=== PATIENT | male | born 1955 | race Caucasian/White ===

== ENCOUNTER → 2017-05-01 13:02 | Outpatient (CLI) | payer MEDICAID, SELFPAY ==
--- NOTE | 2017-05-01 13:04 | CA_ITS ---
PROCEDURE: 2-D M-mode and color Doppler study INDICATIONS FOR THE TEST: Chest pain COPD Heart Murmur Tobacco Smoking Palpitations+ Fatigue+ Syncope Edema+ Hypertension+Diabetes Mellitus Rheumatic Fever SOB+POE Obesity+Hyperlipidemia Family History HD Additional History PATIENT INFORMATION HEIGHT: 71 WEIGHT: 315 GENDER: Male B/P: 120/75 2-D/M-MODE INTERPRETATION: 2-D MEASUREMENTS OBSERVED VALUES IN CMS Right Ventricular Dimension (RVDd) 2.4 Interventricular Septum (Thickness)(IVsd) 1.2 Left Ventricular Internal Dimensions(LVIDd) 4.4 Left Ventricular Posterior Wall (Thickness)(LVPWd) 1.2 Aortic Root 3.1 Aortic Cusp Separation 2.0 Left Atrial Dimensions (LAD) 4.0 2D 1. Left atrium is mildly enlarged, left ventricle is normal size, there is mild concentric left ventricular hypertrophy, visually estimated ejection fraction 55% with no obvious regional wall motion abnormality. 2. The right atrium and right ventricle are normal size and contractility. 3. The aortic valve is minimally thickened and fibrosed. 4. The mitral and tricuspid valve leaflets are minimally thickened. 5. The pulmonic valve is poorly visualized. 6. No significant pericardial effusion noted. DOPPLER INTERROGATION: Doppler interrogation of the aortic, mitral and tricuspid valvular presence of mild mitral and tricuspid regurgitation, tricuspid regurgitant jet velocity is insufficient for calculation of the right ventricular systolic pressure, grade 1 diastolic dysfunction seen without tissue Doppler evidence of raised left atrial pressure. CONCLUSION: 1. Mildly enlarged left atrium, normal left ventricular size, mild concentric left ventricular hypertrophy, visually estimated ejection fraction 55% with no obvious regional wall motion abnormality, grade 1 diastolic dysfunction seen without tissue Doppler evidence of raised left atrial pressure. 2. Mild mitral and tricuspid regurgitation 3. No significant pericardial effusion noted.
== END ==
PROVIDERS: Family Provider Nurse Practitioner; PCP Nurse Practitioner; Visit Provider Nurse Practitioner
DX: R06.02 Shortness of breath (principal); I10 Essential (primary) hypertension; M79.89 Other specified soft tissue disorders
CPT/HCPCS: 93306

== ENCOUNTER → 2020-01-15 12:52 | Outpatient (CLI) | payer MEDICARE, SELFPAY ==
--- NOTE | 2020-01-15 | MR_ITS ---
PROCEDURE: MR HEAD/BRAIN WO CON CLINICAL INDICATION: H/A WITH MEMORY CHANGES HX SEIZURE DISORDER Pt has had a hx of memory issues with headaches. Pt has had a seizure disorder since he was a child. COMPARISON: CT HDWO CT HEAD W/O CONTRAST from 01/12/[address] HEAD W/O CONTRAST from 12/11/2016 TECHNIQUE: Routine multiplanar multi echo sequences are performed without gadolinium enhancement. FINDINGS: No midline shift, mass effect, intracranial hemorrhage, or hydrocephalus is evident. No evidence of acute infarction. Previous CT scan demonstrated gyriform calcification in the left parietal occipital region and parenchymal calcification in the left frontal lobe. These areas are less conspicuous on the MRI with some subtle decreased T2 signal in the left parietal occipital region. There is some mild generalized atrophy which is somewhat more prominent in the left frontal and left parietal occipital region. There is thickening of the calvarium in the left frontal and left occipital region. There is unilateral prominence of the left frontal sinus. The pituitary, corpus callosum, optic chiasm, and craniocervical junction have an unremarkable appearance. IMPRESSION: There is some focal areas of atrophy in the left frontal and left occipital lobe associated with some calvarial thickening at these areas with some minimal decrease in T2 signal in the left occipital area. These areas demonstrate gyriform enhancement on the previous CT scan. 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 Unfortunately, IV contrast was not utilized to evaluate for any enhancement. Does the patient have any stigmata from Sturge-Fang syndrome i.e. cutaneous hemangiomas of the face? Differential diagnosis would include AVMs with calcification and previous torch infection and healed cortical infarct.. Please correlate with clinical history. Dictated by: Moses Hunter MD 01/19/2020 10:19 Moses Hunter MD in [place] 01/19/2020 10:19
== END ==
PROVIDERS: PCP Nurse Practitioner Family; Visit Provider Nurse Practitioner Family
DX: R41.3 Other amnesia (principal); R56.9 Unspecified convulsions; R51.9 Headache, unspecified
CPT/HCPCS: 70551

== ENCOUNTER → 2020-02-18 12:46 | Outpatient (CLI) | payer MEDICARE, MEDICAID, SELFPAY ==
--- NOTE | 2020-02-18 12:48 | MR_ITS ---
PROCEDURE: MR ANGIO HEAD WO CON CLINICAL INDICATION: STURGE-PUGA SYNDROME, FREQUENT HEADACHES MEMORY LOSS, PREVOUS MRI SHOWED ABNORMALITY? COMPARISON: CT HDWO CT HEAD W/O CONTRAST from 12/11/2016 MR MR HEAD/BRAIN WO CON from 01/15/2020 TECHNIQUE: 3D [id number] images multi slab reformats without contrast FINDINGS: No aneurysm, AVM, or dissection or major branch occlusion. Small anterior choroidal infundibulum suspected the left. The left middle cerebral artery M1 and M2 segments and branches are smaller compared to the right side. Basilar artery and branches have an unremarkable appearance. IMPRESSION: 1. No aneurysm or AVM apparent. 2. Suspect a small infundibulum the left anterior choroidal artery origin. Follow-up may confirm stability. 3. The left middle cerebral artery and its branches are smaller compared to the right side. This is of uncertain significance or etiology. Lepto meningeal abnormalities may not be detected on this unenhanced. If Sturge-Puga syndrome is a consideration then would recommend CT angiogram of the head. Dictated by: Moses Hunter MD 02/21/2020 10:53 Moses Hunter MD in [place] 02/21/2020 10:53
== END ==
PROVIDERS: PCP Nurse Practitioner Family; Visit Provider Nurse Practitioner
DX: Q85.8 Other phakomatoses, not elsewhere classified (principal); R51.9 Headache, unspecified
CPT/HCPCS: 70544

== ENCOUNTER 2021-01-31 21:50 | Observation (INO) | payer MEDICARE, MEDICAID, SELFPAY ==
[2021-01-31 21:52] VITALS: BP 177/96; PULSE 99; RESP 18; TEMP 36.7; O2SAT 96; BMI 47.9
[2021-01-31 22:31] VITALS: BP 161/81; PULSE 91; O2SAT 97
[2021-01-31 22:45] LABS: Alanine Aminotransferase 27 U/L (12-78); Albumin Level 4.2 g/dl (3.5-5.0); Albumin/Globulin Ratio 1.3 (1.1-1.8); Alkaline Phosphatase 89 U/L (38-126); Anion Gap 6.9 mEq/L (5-15); Aspartate Amino Transferase 30 U/L (17-59); Blood Urea Nitrogen 22 mg/dl (9-20); Calcium 9.2 mg/dl (8.4-10.2); Carbon Dioxide 33 mmol/L (22.0-30.0); Chloride 106 mmol/L (98-107); Creatinine Clearance Estimated 69 mL/min (50-200); Estimated Glomerular Filt Rate 112 ml/min (>60); GFR (African American) 136 ML/MIN (>60); Globulin 3.2 g/dL (1.3-3.2); Glucose 101 mg/dl (74-100); Potassium 3.9 mmoL/L (3.5-5.1); Sodium 142 mmol/L (136-145); Total Protein,Serum 7.4 g/dl (6.3-8.2)
[2021-01-31 22:51] LABS: C-Reactive Protein 40.5 mg/L (0-4)
[2021-01-31 22:55] LABS: Bilirubin,Total 0.1 mg/dl (0.2-1.3)
[2021-01-31 23:03] LABS: Basophils # 0.1 K/mm3 (0-0.2); Basophils % 0.7 % (0.1-2.0); Eosinophils # 0.1 K/mm3 (0.0-0.4); Eosinophils % 1.8 % (0.1-12.0); Hemoglobin 13.8 g/dL (14.1-18.0); Lymphocytes # 1.9 K/mm3 (0.7-4.5); Lymphocytes % 25.4 % (10-50); Mean Corpuscular HGB Conc 32.1 g/dL (31.8-35.4); Mean Corpuscular Hemoglobin 30.3 pg (27.0-31.2); Mean Corpuscular Volume 94.2 fl (80-94); Mean Platelet Volume 8.4 fl (7.4-10.4); Monocytes # 0.5 K/mm3 (0.1-1.0); Monocytes % 6.9 % (1.7-9.3); Neutrophils # 4.9 K/mm3 (1.8-7.8); Neutrophils % 65.2 % (37.0-80.0); Platelet Count 293 K/mm3 (142-424); Red Blood Count 4.56 M/mm3 (4.60-6.20); Red Cell Distribution Width 15.1 % (11.5-17.5); White Blood Count 7.5 K/mm3 (4.8-10.8)
[2021-01-31 23:04] LABS: Procalcitonin 0.041 ng/mL (0.0-2.0)
[2021-01-31 23:26] LABS: Erythrocyte Sedimentation Rate 18 mm/hr (0-20)
[2021-01-31 23:57] VITALS: BP 153/82; PULSE 87; O2SAT 97
--- NOTE | 2021-02-01 00:40 | HMH.EDSKAF ---
ED Disposition Clinical Impression: Cellulitis Qualifiers: Site of cellulitis: extremity Site of cellulitis of extremity: lower extremity Laterality: left Qualified Code(s): L03.116 - Cellulitis of left lower limb Obese Qualifiers: Obesity type: due to excess calories Obesity classification: adult class 3 (BMI >= 40) Serious obesity comorbidity presence: with serious comorbidity Body mass index: BMI 45.0-49.9 Qualified Code(s): E66.01 - Morbid (severe) obesity due to excess calories; Z68.42 - Body mass index [BMI] 45.0-49.9, adult Disposition: Admitted as Observation Condition on Discharge: Serious Referrals: Vivienne Diamond APRN [Primary Care Provider] - - Critical Care Critical Care Time: No Attestation: On 01/31/21, the high probability of a clinically significant, sudden or life threatening deterioration of the following system(s) required my full and direct attention, intervention and personal management. The time I documented below is in addition to time spent performing reported procedures but includes the following listed in this critical care notation. Medical Decision Making - Medical Records Medical records reviewed: Yes: I reviewed the patient's medical records. - Lopez Inquiry Pt receiving controlled substance: No Vital Signs: 01/31/21 21:52 01/31/21 22:31 01/31/21 23:57 Temperature 98.0 F Temperature Source Oral Pulse Rate 91 H 87 Pulse Rate [Apical] 99 H Respiratory Rate 18 Blood Pressure 161/81 H 153/82 H Blood Pressure [Right Arm] 177/96 H Blood Pressure Mean [Right Arm] 123 Blood Pressure Source [Right Arm] Automatic Cuff Blood Pressure Position [Right Arm] Sitting 02 Sat by Pulse Oximetry 96 97 97 Oxygen Delivery Method Room Air Room Air Room Air - Lab Data Lab results reviewed: Yes: I reviewed the patient's lab results. Lab Results 01/31/21 22:29: WBC 7.5, RBC 4.56 L, Hgb 13.8 L, Hct 43.0, MCV 94.2 H, MCH 30.3, MCHC 32.1, RDW 15.1, Plt Count 293, MPV 8.4, Neut % (Auto) 65.2, Lymph % (Auto) 25.4, [place] % (Auto) 6.9, Eos % (Auto) 1.8, Baso % (Auto) 0.7, Neut # (Auto) 4.9, Lymph # (Auto) 1.9, [place] # (Auto) 0.5, Eos # (Auto) 0.1, Baso # (Auto) 0.1, ESR 18 01/31/21 22:29: Sodium 142, Potassium 3.9, Chloride 106, Carbon Dioxide 33 H, Anion Gap 6.9, BUN 22 H, Creatinine 0.70, Estimated Creat Clear 69, Estimated GFR 112, Est GFR ( Amer) 136, Glucose 101 H, Calcium 9.2, Total Bilirubin 0.1 L, AST 30, ALT 27, Alkaline Phosphatase 89, C-Reactive Protein 40.5 H, Total Protein 7.4, Albumin 4.2, Globulin 3.2, Albumin/Globulin Ratio 1.3 01/31/21 22:29: Procalcitonin 0.041 Result diagrams: 01/31/21 22:29 01/31/21 22:29 Orders (Tests/Meds): ED MEDICATIONS Generic Name Dose Route Start Last Admin Trade Name Freq PRN Reason Stop Dose Admin Miscellaneous 1 each 02/01/21 00:45 Vancomycin Consult Request * 03/03/21 00:44 CONSULT PHARMACY [facility] ORDERS Category Date Time Status Lactic Acid Stat Lab 02/01/21 00:38 Ordered Rapid PCR Covid and Flu A/B Stat Lab 02/01/21 00:38 Ordered Blood Culture Stat Micro 02/01/21 00:38 Ordered Wound Culture and Gram Stain Stat Micro 02/01/21 00:38 Ordered Medical Decision Narrative: has reddness and tender consistent with cellulitis Skin/Abscess/FB HPI - General Chief complaint: Extremity Injury, Lower Stated complaint: blisters on left leg, draining Time Seen by Provider: 02/01/21 00:30 Mode of Arrival: Ambulatory Source of Information: Patient, Medical Record Limitations: No Limitations Description of Symptoms (Recalled from ER Triage Doc. by RN): pt arrives private vehicle, c/o swelling in left lower leg for prior week with redness. reports his leg has begun to leak clear drainage from a wound on the back of leg. Denies any injury to extremity. - History of Present Illness HPI narrative: progressive reddness and swelling with drainage lt lower ext over the last few days MD complaint: ra
[2021-02-01 00:54] LABS: Coronavirus 19, PCR Not Detected (NotDetected); Influenza A, PCR Not Detected (NotDetected); Influenza B, PCR Not Detected (NotDetected)
[2021-02-01 01:05] LABS: Lactic Acid 0.8 mmol/L (0.7-2.1)
[2021-02-01 01:06] VITALS: BMI 48.0
--- NOTE | 2021-02-01 01:17 | PC.NURSE ---
Consulted with Bony at night watch concerning patients vancomycin dosing. Advised to give 2 grams IV once.
[2021-02-01 02:48] VITALS: BP 150/96; PULSE 92; RESP 18; TEMP 36.8; O2SAT 99
--- NOTE | 2021-02-01 03:07 | PC.NURSE ---
PT ARRIVED TO FLOOR VIA W/C FROM ED W/STAFF @ 3672
[2021-02-01 03:16] VITALS: BP 120/99; PULSE 94; RESP 19; TEMP 36.6; O2SAT 100
--- NOTE | 2021-02-01 07:19 | HMH.HP ---
*Admission Date: 02/01/21 *Chief complaint: Left foot pain *History of present illness: 65-year-old male with cellulitis of the left lower leg seen in the office a week ago and treated with antibiotics. Pain had worsened and patient presented to the emergency department last night where he has an area of erythema on the posterior and lateral left lower leg with some open wounds. Some of the wounds drained. Patient reports increased edema if he is ambulatory. He does not believe he is had any fevers or chills. As patient had failed outpatient treatment with antibiotics he was admitted for IV antibiotic therapy with vancomycin. [facility] History I have reviewed the patient's past medical history: Yes Medical History: Reports:: Seizures (Epilepsy) *Have you ever received a pneumonia vaccine?: Yes *Have you received a flu vaccine this season?: No - *Social History Last grade of school completed: 11th or 12th Smoking Status: Never smoker Alcohol Intake: never *Occupational Status:: employed, retired *Travel in the last 8 weeks: None Family Hx:: Cancer, Hyperlipidemia, Hypertension Review of Systems - Constitutional Denies anorexia, Denies body ache(s), Denies lack of energy - Eyes Denies blurry vision - ENT Denies abnormal hearing, Denies ear discharge - *Cardiovascular Denies chest pain at rest, Denies chest pain with activity, Denies shortness of breath with activity - *Respiratory Denies change in phlegm color, Denies chest congestion, Denies cough - *Gastrointestinal Denies abdominal pain, Denies belching - *Genitourinary Denies difficulty urinating, Denies blood in semen - *Musculoskeletal Reports joint pain (Left hip), Denies abnormal walking - Integumentary/Breasts Reports redness, Reports lesions, Denies hair loss - *Neurologic Denies headache(s), Denies seizure-like activity Meds Home Medications Medication Instructions Recorded Confirmed Type Furosemide [Lasix 40mg tab] 40 mg PO DAILY 02/01/21 02/01/21 History Piroxicam 10 mg PO DAILY 02/01/21 02/01/21 History Primidone 250 mg PO DAILY 02/01/21 02/01/21 History Tamsulosin HCl [Flomax 0.4mg 0.4 mg PO HS 02/01/21 02/01/21 History capsule] Trazodone HCl 100 mg PO DAILY 02/01/21 02/01/21 History levETIRAcetam [Levetiracetam] 750 mg PO DAILY 02/01/21 02/01/21 History predniSONE [Prednisone 5mg 5 mg PO DAILY 02/01/21 02/01/21 History Tab] Allergies Allergy/AdvReac Type Severity Reaction Status Date / Time penicillin G [PENICILLIN G] Allergy Unknown Verified 02/01/21 01:18 Exam Vital signs and Labs for Last 24 Hours: Temp Pulse Resp BP Pulse Ox 98 F 94 H 19 120/99 H 100 02/01/21 03:16 02/01/21 03:16 02/01/21 03:16 02/01/21 03:16 02/01/21 03:16 Laboratory Results - last 24 hr 01/31/21 22:29: WBC 7.5, RBC 4.56 L, Hgb 13.8 L, Hct 43.0, MCV 94.2 H, MCH 30.3, MCHC 32.1, RDW 15.1, Plt Count 293, MPV 8.4, Neut % (Auto) 65.2, Lymph % (Auto) 25.4, [place] % (Auto) 6.9, Eos % (Auto) 1.8, Baso % (Auto) 0.7, Neut # (Auto) 4.9, Lymph # (Auto) 1.9, [place] # (Auto) 0.5, Eos # (Auto) 0.1, Baso # (Auto) 0.1, ESR 18 01/31/21 22:29: Sodium 142, Potassium 3.9, Chloride 106, Carbon Dioxide 33 H, Anion Gap 6.9, BUN 22 H, Creatinine 0.70, Estimated Creat Clear 69, Estimated GFR 112, Est GFR ( Amer) 136, Glucose 101 H, Calcium 9.2, Total Bilirubin 0.1 L, AST 30, ALT 27, Alkaline Phosphatase 89, C-Reactive Protein 40.5 H, Total Protein 7.4, Albumin 4.2, Globulin 3.2, Albumin/Globulin Ratio 1.3 01/31/21 22:29: Procalcitonin 0.041 02/01/21 00:46: Lactate 0.8 02/01/21 00:46: SARS-CoV-2 (PCR) Not detected, Influenza A Untype (PCR) Not detected, Influenza Type B (PCR) Not detected I & O for Last 24 hours: Intake & Output 01/29/21 01/30/21 01/31/21 02/01/21 11:59 11:59 11:59 11:59 Weight 317 lb Microbiology Reports for the Last 24 Hours: Microbiology 02/01/21 00:52 Leg,Left Gram Stain - Final - Constituti
--- NOTE | 2021-02-01 07:34 | P.CONPHA_ITS ---
[facility] Pharmacy VTE Monitoring - Patient Demographics Admission date: 02/01/21 Report Date: 02/01/21 Time: 07:34 Allergies/Adverse Reactions: Patient Allergies penicillin G [PENICILLIN G] Allergy (Unknown, Verified 02/01/21 01:18) Height: 1.73 m Weight: 143.789 kg Patient Problems: Current Active Problems Cellulitis (Acute) Obese (Acute) Cellulitis of left leg (Acute) Cellulitis of left foot (Acute) Epilepsy (Acute) - VTE Risk Labs: VTE Related Lab Results Hgb 13.8 g/dL (14.1-18.0) L 01/31/21 22:29 Hct 43.0 % (42.0-52.0) 01/31/21 22:29 Plt Count 293 K/mm3 (142-424) 01/31/21 22:29 BUN 22 mg/dl (9-20) H 01/31/21 22:29 Creatinine 0.70 mg/dl (0.66-1.25) 01/31/21 22:29 Estimated Creat Clear 69 mL/min (50-200) 01/31/21 22:29 Was VTE Risk Assessment Performed: Yes VTE Risk Level: Low Risk Clinical Trial Participant: No - Prophylaxis VTE Prophylaxis Ordered?: Yes Types of VTE Prophylaxis: TEDS Knee High
--- NOTE | 2021-02-01 07:37 | HMH.PHAINT ---
VERIFIED HOME MEDICATION LIST USING LIST FROM [facility]
[2021-02-01 08:00] VITALS: BP 140/99; PULSE 91; RESP 22; TEMP 36.8; O2SAT 96
--- NOTE | 2021-02-01 08:02 | PC.WOUNDNOTE ---
LLE, Back of ankle.
--- NOTE | 2021-02-01 08:06 | HMH.PHACONS ---
- Pharmacy Consult Date: 02/01/21 Time: 08:06 Referring provider: DR. LOCKETT Reason for Consult:: VANCOMYCIN DOSING FOR CELLULITIS Allergies and ADEs:: Allergies Allergy/AdvReac Type Severity Reaction Status Date / Time penicillin G [PENICILLIN G] Allergy Unknown Verified 02/01/21 01:18 Home Medications:: Home Medications Medication Instructions Recorded Confirmed Type Furosemide [Lasix 40mg tab] 40 mg PO BIDL 02/01/21 02/01/21 History Piroxicam 10 mg PO BID 02/01/21 02/01/21 History Primidone 500 mg PO BID 02/01/21 02/01/21 History Tamsulosin HCl [Flomax 0.4mg 0.4 mg PO HS 02/01/21 02/01/21 History capsule] Trazodone HCl 100 mg PO HS 02/01/21 02/01/21 History levETIRAcetam [Levetiracetam] 750 mg PO BID 02/01/21 02/01/21 History predniSONE [Prednisone 5mg 5 mg PO DAILY 02/01/21 02/01/21 History Tab] Height: 1.73 m Weight: 143.789 kg Laboratory Results:: Laboratory Results - last 24 hr 01/31/21 22:29: WBC 7.5, RBC 4.56 L, Hgb 13.8 L, Hct 43.0, MCV 94.2 H, MCH 30.3, MCHC 32.1, RDW 15.1, Plt Count 293, MPV 8.4, Neut % (Auto) 65.2, Lymph % (Auto) 25.4, [place] % (Auto) 6.9, Eos % (Auto) 1.8, Baso % (Auto) 0.7, Neut # (Auto) 4.9, Lymph # (Auto) 1.9, [place] # (Auto) 0.5, Eos # (Auto) 0.1, Baso # (Auto) 0.1, ESR 18 01/31/21 22:29: Sodium 142, Potassium 3.9, Chloride 106, Carbon Dioxide 33 H, Anion Gap 6.9, BUN 22 H, Creatinine 0.70, Estimated Creat Clear 69, Estimated GFR 112, Est GFR ( Amer) 136, Glucose 101 H, Calcium 9.2, Total Bilirubin 0.1 L, AST 30, ALT 27, Alkaline Phosphatase 89, C-Reactive Protein 40.5 H, Total Protein 7.4, Albumin 4.2, Globulin 3.2, Albumin/Globulin Ratio 1.3 01/31/21 22:29: Procalcitonin 0.041 02/01/21 00:46: Lactate 0.8 02/01/21 00:46: SARS-CoV-2 (PCR) Not detected, Influenza A Untype (PCR) Not detected, Influenza Type B (PCR) Not detected Medical History: Reports:: Seizures (Epilepsy) Assessment and Plan (1) Cellulitis of left leg Status: Acute Category: Medical Code(s): L03.116 - Cellulitis of left lower limb (2) Cellulitis of left foot Status: Acute Category: Medical Code(s): L03.116 - Cellulitis of left lower limb (3) Epilepsy Status: Acute Category: Medical Code(s): G40.909 - Epilepsy, unspecified, not intractable, without status epilepticus - Assessment and plan all Dx Assessment and Plan for all problems:: Age: 65 yo Serum creatinine: 1 mg/dL Height: 68.1 Inches Weight (kg): 143.8 Assessment: IBW (kg): 68.63 Dosing wt(kg): 143.8 Estimated Creatinine clearance (ml/min): 69.6 CRCL method: Cockcroft and Gault using ibw(default). Drug selected: Vancomycin Loading dose (mg): 0 Vd (liters): 115.0 (factor used: 0.8 L/kg) Oscar (hr-1): 0.062 Half life (hrs): 11.18 Recommended dose: 2000 mg Interval: 12 hrs Infusion time (hrs): 2.0 Predicted peak (mcg/mL): 31.2 Predicted trough (mcg/mL): 16.78 Total body weight is being used for vancomycin dosing. Recommendations: Give Vancomycin 2000 mg q 12 hrs with an expected Cpeak of 31.2 mcg/ml and an expected Ctrough of 16.78 mcg/ml. ----Vanco only - ignore for aminoglycosides----- CLvanco= 7.13 L/hr AUC 0-24 /MELISSA Data: MELISSA 0.5 mcg/mL: AUC/MELISSA: 1122.0 MELISSA 1.0 mcg/mL: AUC/MELISSA: 561.0 --------- MELISSA 1.5 mcg/mL: AUC/MELISSA: 374.0 MELISSA 2.0 mcg/mL: AUC/MELISSA: 280.5 Thank you for the consult, will continue to follow.
--- NOTE | 2021-02-01 08:07 | PC.WOUNDNOTE ---
LLE. Top of leg
--- NOTE | 2021-02-01 08:10 | PC.WOUNDNOTE ---
area to back of (L) ankle
[2021-02-01 09:09] LABS: Chloride 106 mmol/L (98-107); Potassium 3.8 mmoL/L (3.5-5.1); Sodium 141 mmol/L (136-145)
[2021-02-01 09:12] LABS: Anion Gap 9.8 mEq/L (5-15); Blood Urea Nitrogen 17 mg/dl (9-20); Carbon Dioxide 29 mmol/L (22.0-30.0); Creatinine Clearance Estimated 69 mL/min (50-200); Estimated Glomerular Filt Rate 112 ml/min (>60); GFR (African American) 136 ML/MIN (>60); Glucose 109 mg/dl (74-100)
[2021-02-01 09:18] LABS: Basophils % 0.4 % (0.1-2.0); Eosinophils # 0.1 K/mm3 (0.0-0.4); Eosinophils % 0.7 % (0.1-12.0); Hemoglobin 13.1 g/dL (14.1-18.0); Lymphocytes # 1.1 K/mm3 (0.7-4.5); Lymphocytes % 14.1 % (10-50); Mean Corpuscular HGB Conc 31.9 g/dL (31.8-35.4); Mean Corpuscular Hemoglobin 30.2 pg (27.0-31.2); Mean Corpuscular Volume 94.7 fl (80-94); Mean Platelet Volume 9.1 fl (7.4-10.4); Monocytes # 0.5 K/mm3 (0.1-1.0); Monocytes % 6.9 % (1.7-9.3); Neutrophils # 6.1 K/mm3 (1.8-7.8); Neutrophils % 77.9 % (37.0-80.0); Platelet Count 269 K/mm3 (142-424); Red Blood Count 4.33 M/mm3 (4.60-6.20); Red Cell Distribution Width 15.1 % (11.5-17.5); White Blood Count 7.9 K/mm3 (4.8-10.8)
[2021-02-01 15:02] VITALS: BMI 48.0
[2021-02-01 16:00] VITALS: BP 166/97; PULSE 92; RESP 22; TEMP 36.6; O2SAT 98
[2021-02-01 20:00] VITALS: BP 160/85; PULSE 89; RESP 18; TEMP 36.4; O2SAT 97
[2021-02-01 21:30] VITALS: PULSE 89
[2021-02-02] VITALS: BP 153/85; PULSE 82; RESP 18; TEMP 37.2; O2SAT 95
[2021-02-02 04:00] VITALS: BP 146/82; PULSE 76; RESP 17; TEMP 37.2; O2SAT 91
[2021-02-02 04:52] VITALS: BMI 48.0
--- NOTE | 2021-02-02 05:24 | PC.NURSE ---
LATE ENTRY: At 2157 Vivi from lab called to notify of aerobic positive blood cultures x2. -Gram + cocci -Staphylococcus -mecA gene detected Results repeated x2, along with name and MD change control coordinator made aware at 2216 No new orders received.
--- NOTE | 2021-02-02 05:26 | PC.NURSE ---
At approximately 2345: Patient had complaints of what he describes as a seizure; patient states I had a flash of light and then couldn't get my thoughts together . Patient stated he was completely aware of what was happening. Patient was using the bathroom at the time. He states that he suffers from grand mal seizures. Patient vital signs where taken and documented (see vitals). Patient has since remained sleeping in recliner because he states I just cannot get comfortable in the bed . Patient has appeared to have rested well this RN's shift. Patient has since voiced no new complaints thus far to this RN.
--- NOTE | 2021-02-02 07:18 | P.PN_ITS ---
Internal Medicine - PN: Subj *Date: 02/02/21 *Time: 07:18 Interval history: Patient is remained stable. Overnight patient claimed he was getting ready to have a seizure but no seizure activity was witnessed. Patient remained lucid and conversant during this time. Patient has blood cultures returned positive in the aerobic bottles. Wound culture is not growing any organism. Patient denies any problems overnight. He has remained afebrile Exam Vital signs and Labs for Last 24 Hours: Temp Pulse Resp BP Pulse Ox 98.9 F 76 17 146/82 H 91 L 02/02/21 04:00 02/02/21 04:00 02/02/21 04:00 02/02/21 04:00 02/02/21 04:00 Laboratory Results - last 24 hr 02/01/21 08:02: WBC 7.9, RBC 4.33 L, Hgb 13.1 L, Hct 41.0 L, MCV 94.7 H, MCH 30.2, MCHC 31.9, RDW 15.1, Plt Count 269, MPV 9.1, Neut % (Auto) 77.9, Lymph % (Auto) 14.1, [place] % (Auto) 6.9, Eos % (Auto) 0.7, Baso % (Auto) 0.4, Neut # (Auto) 6.1, Lymph # (Auto) 1.1, [place] # (Auto) 0.5, Eos # (Auto) 0.1, Baso # (Auto) 0.0 02/01/21 08:02: Sodium 141, Potassium 3.8, Chloride 106, Carbon Dioxide 29, Anion Gap 9.8, BUN 17, Creatinine 0.70, Estimated Creat Clear 69, Estimated GFR 112, Est GFR ( Amer) 136, Glucose 109 H, Calcium 9.0 I & O for Last 24 hours: Intake & Output 01/30/21 01/31/21 02/01/21 02/02/21 11:59 11:59 11:59 11:59 Intake Total 480 / 480 600 / 600 Balance 480 / 480 600 / 600 Weight 317 lb 316 lb 14.632 oz Microbiology Reports for the Last 24 Hours: Microbiology 02/01/21 00:52 Leg,Left Gram Stain - Final 02/01/21 00:52 Leg,Left Wound Culture - Preliminary NO GROWTH AFTER 24 HOURS 02/01/21 00:46 Blood Blood Culture - Preliminary 02/01/21 00:46 Blood Blood Culture - Preliminary - Constitutional no acute distress - *Routine Extremities Exam Present: edema - *Routine Skin Exam Present: erythema, warm Comments: Erythema of his left leg has contracted and is radiology administrator compared to yesterday. Assessment and Plan (1) Cellulitis of left leg Status: Acute Category: Medical Code(s): L03.116 - Cellulitis of left lower limb (2) Cellulitis of left foot Status: Acute Category: Medical Code(s): L03.116 - Cellulitis of left lower limb (3) Epilepsy Status: Acute Category: Medical Code(s): G40.909 - Epilepsy, unspecified, not intractable, without status epilepticus (4) Gram-positive bacteremia Status: Suspected Category: Medical Code(s): R78.81 - Bacteremia - Assessment and plan all Dx Assessment and Plan for all problems:: 1. Repeat blood cultures this morning 2. Continue vancomycin 3. Encourage patient to keep his leg elevated.
[2021-02-02 08:00] VITALS: BP 125/74; PULSE 72; RESP 18; TEMP 36.6; O2SAT 97
[2021-02-02 08:35] LABS: Basophils # 0.1 K/mm3 (0-0.2); Basophils % 0.7 % (0.1-2.0); Eosinophils # 0.1 K/mm3 (0.0-0.4); Eosinophils % 1.7 % (0.1-12.0); Hematocrit 39.4 % (42.0-52.0); Hemoglobin 12.8 g/dL (14.1-18.0); Lymphocytes # 1.4 K/mm3 (0.7-4.5); Lymphocytes % 20.9 % (10-50); Mean Corpuscular HGB Conc 32.5 g/dL (31.8-35.4); Mean Corpuscular Hemoglobin 30.7 pg (27.0-31.2); Mean Corpuscular Volume 94.4 fl (80-94); Mean Platelet Volume 8.3 fl (7.4-10.4); Monocytes # 0.4 K/mm3 (0.1-1.0); Monocytes % 6.5 % (1.7-9.3); Neutrophils # 4.6 K/mm3 (1.8-7.8); Neutrophils % 70.2 % (37.0-80.0); Platelet Count 247 K/mm3 (142-424); Red Blood Count 4.17 M/mm3 (4.60-6.20); Red Cell Distribution Width 15.1 % (11.5-17.5); White Blood Count 6.5 K/mm3 (4.8-10.8)
[2021-02-02 08:43] LABS: C-Reactive Protein 32.2 mg/L (0-4)
[2021-02-02 16:00] VITALS: BP 151/92; PULSE 76; RESP 18; TEMP 37.1; O2SAT 96
--- NOTE | 2021-02-02 18:31 | PC.NURSE ---
No acute changes. VSS. Dsg changed to LLE and is cdi.
[2021-02-02 20:00] VITALS: BP 153/80; PULSE 77; RESP 18; TEMP 36.8; O2SAT 96
[2021-02-02 23:15] LABS: Blood Urea Nitrogen 16 mg/dl (9-20); Calcium 9.2 mg/dl (8.4-10.2); Carbon Dioxide 31 mmol/L (22.0-30.0); Chloride 100 mmol/L (98-107); Creatinine Clearance Estimated 69 mL/min (50-200); Estimated Glomerular Filt Rate 96 ml/min (>60); GFR (African American) 117 ML/MIN (>60); Glucose 85 mg/dl (74-100); Sodium 134 mmol/L (136-145)
[2021-02-02 23:36] LABS: Vancomycin,Trough 14.7 ug/mL (5.0-10.0)
[2021-02-03 03:47] LABS: Vancomycin,Peak 28.1 ug/ml (11-39)
[2021-02-03 05:00] VITALS: BP 145/89; PULSE 78; RESP 18; TEMP 36.4; O2SAT 95
[2021-02-03 05:11] VITALS: BMI 47.7
--- NOTE | 2021-02-03 06:50 | PC.NURSE ---
No acute changes. Pt states. Pt eager to go home. Ambulating to BR independently, tolerates well. Dressing in place to LLElida, JAH.
[2021-02-03 07:05] LABS: Basophils # 0.1 K/mm3 (0-0.2); Basophils % 0.8 % (0.1-2.0); Eosinophils # 0.2 K/mm3 (0.0-0.4); Eosinophils % 3.2 % (0.1-12.0); Hematocrit 40.7 % (42.0-52.0); Hemoglobin 13.1 g/dL (14.1-18.0); Lymphocytes # 1.6 K/mm3 (0.7-4.5); Lymphocytes % 24.4 % (10-50); Mean Corpuscular HGB Conc 32.1 g/dL (31.8-35.4); Mean Corpuscular Hemoglobin 30.6 pg (27.0-31.2); Mean Corpuscular Volume 95.1 fl (80-94); Monocytes # 0.4 K/mm3 (0.1-1.0); Monocytes % 6.6 % (1.7-9.3); Neutrophils # 4.2 K/mm3 (1.8-7.8); Platelet Count 277 K/mm3 (142-424); Red Blood Count 4.27 M/mm3 (4.60-6.20); Red Cell Distribution Width 14.9 % (11.5-17.5); White Blood Count 6.4 K/mm3 (4.8-10.8)
--- NOTE | 2021-02-03 07:17 | HMH.ACPN2 ---
Internal Medicine - PN: Subj *Date: 02/03/21 *Time: 07:17 Interval history: Patient has no new complaints. No acute events over the last 24 hours. Facial patient is feeling better and is hopeful for discharge. Pain in the lower leg has decreased significantly. He has remained afebrile Exam Vital signs and Labs for Last 24 Hours: Temp Pulse Resp BP Pulse Ox 97.5 F L 78 18 145/89 H 95 02/03/21 05:00 02/03/21 05:00 02/03/21 05:00 02/03/21 05:00 02/03/21 05:00 Laboratory Results - last 24 hr 02/02/21 08:03: C-Reactive Protein 32.2 H 02/02/21 08:03: WBC 6.5, RBC 4.17 L, Hgb 12.8 L, Hct 39.4 L, MCV 94.4 H, MCH 30.7, MCHC 32.5, RDW 15.1, Plt Count 247, MPV 8.3, Neut % (Auto) 70.2, Lymph % (Auto) 20.9, [place] % (Auto) 6.5, Eos % (Auto) 1.7, Baso % (Auto) 0.7, Neut # (Auto) 4.6, Lymph # (Auto) 1.4, [place] # (Auto) 0.4, Eos # (Auto) 0.1, Baso # (Auto) 0.1 02/02/21 22:50: Sodium 134 L, Potassium 4.0, Chloride 100, Carbon Dioxide 31 H, Anion Gap 7.0, BUN 16, Creatinine 0.80, Estimated Creat Clear 69, Estimated GFR 96, Est GFR ( Amer) 117, Glucose 85, Calcium 9.2 02/02/21 22:50: Vancomycin Trough 14.7 H 02/03/21 03:05: Vancomycin Peak 28.1 02/03/21 06:26: WBC 6.4, RBC 4.27 L, Hgb 13.1 L, Hct 40.7 L, MCV 95.1 H, MCH 30.6, MCHC 32.1, RDW 14.9, Plt Count 277, MPV 9.0, Neut % (Auto) 65.0, Lymph % (Auto) 24.4, [place] % (Auto) 6.6, Eos % (Auto) 3.2, Baso % (Auto) 0.8, Neut # (Auto) 4.2, Lymph # (Auto) 1.6, [place] # (Auto) 0.4, Eos # (Auto) 0.2, Baso # (Auto) 0.1 I & O for Last 24 hours: Intake & Output 01/31/21 02/01/21 02/02/21 02/03/21 11:59 11:59 11:59 11:59 Intake Total 480 / 480 1080 / 1080 1270 / 1270 Balance 480 / 480 1080 / 1080 1270 / 1270 Weight 317 lb 316 lb 14.632 oz 315 lb Microbiology Reports for the Last 24 Hours: Microbiology 02/01/21 00:52 Leg,Left Gram Stain - Final 02/01/21 00:52 Leg,Left Wound Culture - Preliminary Gram Positive Cocci Narrative: Patient looks well. The left lower leg wounds have significantly less erythema. There is no tenderness of the lower leg. Extremity remains edematous Assessment and Plan (1) Cellulitis of left leg Status: Acute Category: Medical Code(s): L03.116 - Cellulitis of left lower limb (2) Cellulitis of left foot Status: Acute Category: Medical Code(s): L03.116 - Cellulitis of left lower limb (3) Epilepsy Status: Acute Category: Medical Code(s): G40.909 - Epilepsy, unspecified, not intractable, without status epilepticus (4) Gram-positive bacteremia Status: Suspected Category: Medical Code(s): R78.81 - Bacteremia - Assessment and plan all Dx Assessment and Plan for all problems:: 1. Continue vancomycin at this time. Patient has gram-positive cocci growing in both aerobic cultures and 1 anaerobic as well as his wound culture. Patient will need a week of IV antibiotics.
[2021-02-03 07:53] VITALS: BP 144/87; PULSE 92; RESP 22; TEMP 36.7; O2SAT 97
--- NOTE | 2021-02-03 09:38 | P.CONPHA_ITS ---
- Pharmacy Consult Date: 02/03/21 Time: 09:38 Referring provider: DR. LOCKETT Reason for Consult:: VANCOMYCIN LEVELS Allergies and ADEs:: Allergies Allergy/AdvReac Type Severity Reaction Status Date / Time penicillin G [PENICILLIN G] Allergy Unknown Verified 02/01/21 01:18 Home Medications:: Home Medications Medication Instructions Recorded Confirmed Type Furosemide [Lasix 40mg tab] 40 mg PO BIDL 02/01/21 02/01/21 History Piroxicam 10 mg PO BID 02/01/21 02/01/21 History Primidone 500 mg PO BID 02/01/21 02/01/21 History Tamsulosin HCl [Flomax 0.4mg 0.4 mg PO HS 02/01/21 02/01/21 History capsule] Trazodone HCl 100 mg PO HS 02/01/21 02/01/21 History levETIRAcetam [Levetiracetam] 750 mg PO BID 02/01/21 02/01/21 History predniSONE [Prednisone 5mg 5 mg PO DAILY 02/01/21 02/01/21 History Tab] Height: 1.73 m Weight: 142.882 kg Laboratory Results:: Laboratory Results - last 24 hr 02/02/21 22:50: Sodium 134 L, Potassium 4.0, Chloride 100, Carbon Dioxide 31 H, Anion Gap 7.0, BUN 16, Creatinine 0.80, Estimated Creat Clear 69, Estimated GFR 96, Est GFR ( Amer) 117, Glucose 85, Calcium 9.2 02/02/21 22:50: Vancomycin Trough 14.7 H 02/03/21 03:05: Vancomycin Peak 28.1 02/03/21 06:26: WBC 6.4, RBC 4.27 L, Hgb 13.1 L, Hct 40.7 L, MCV 95.1 H, MCH 30.6, MCHC 32.1, RDW 14.9, Plt Count 277, MPV 9.0, Neut % (Auto) 65.0, Lymph % (Auto) 24.4, [place] % (Auto) 6.6, Eos % (Auto) 3.2, Baso % (Auto) 0.8, Neut # (Auto) 4.2, Lymph # (Auto) 1.6, [place] # (Auto) 0.4, Eos # (Auto) 0.2, Baso # (Auto) 0.1 Medical History: Reports:: Seizures (Epilepsy) Assessment and Plan (1) Cellulitis of left leg Status: Acute Category: Medical Code(s): L03.116 - Cellulitis of left lower limb (2) Cellulitis of left foot Status: Acute Category: Medical Code(s): L03.116 - Cellulitis of left lower limb (3) Epilepsy Status: Acute Category: Medical Code(s): G40.909 - Epilepsy, unspecified, not intractable, without status epilepticus (4) Gram-positive bacteremia Status: Suspected Category: Medical Code(s): R78.81 - Bacteremia - Assessment and plan all Dx Assessment and Plan for all problems:: PATIENT'S VANCOMYCIN PEAK AND TROUGH LEVELS WERE 28.1 MCG/ML AND 14.7 MCG/ML. RECOMMEND CONTINUING WITH VANCOMYCIN 2 GM Q12H AT THIS TIME. PHARMACY WILL FOLLOW DAILY AND ADJUST APPROPRIATE.
[2021-02-03 15:43] VITALS: BP 146/90; PULSE 78; RESP 22; TEMP 37.2; O2SAT 97
--- NOTE | 2021-02-03 18:07 | PC.NURSE ---
Patient is non tele and on room air. Patient is up ad-anusha. Patient up to chair today. Alert and oriented times 4. Phone and call light in reach. Bed in lowest position. Will continue to monitor.
[2021-02-03 20:00] VITALS: BP 142/87; PULSE 92; PULSE 94; RESP 16; TEMP 36.4; O2SAT 94
[2021-02-04 04:00] VITALS: BP 151/79; PULSE 82; RESP 16; TEMP 36.3; O2SAT 97
[2021-02-04 04:44] VITALS: BMI 47.7
[2021-02-04 08:00] VITALS: BP 147/75; PULSE 80; RESP 16; TEMP 36.4; O2SAT 98
--- NOTE | 2021-02-04 08:18 | HMH.DCSUM ---
General - General Admission date:: 02/01/21 Discharge date: 02/04/21 HPI HPI: 65-year-old male with cellulitis of the left lower leg seen in the office a week ago and treated with antibiotics. Pain had worsened and patient presented to the emergency department last night where he has an area of erythema on the posterior and lateral left lower leg with some open wounds. Some of the wounds drained. Patient reports increased edema if he is ambulatory. He does not believe he is had any fevers or chills. As patient had failed outpatient treatment with antibiotics he was admitted for IV antibiotic therapy with vancomycin. Hospital Course Hospital Course: Patient was admitted and placed on vancomycin. Cellulitis responded to antibiotics. Patient however began growing gram-positive cocci in his blood as well as in his wound culture. Wound grew methicillin sensitive staph aureus, blood culture grew staph intermedius and staph simulans. Once organisms were identified and sensitivities were completed patient was discharged home. He will complete a course of IV antibiotics followed by course of oral antibiotics. Patient was afebrile during his entire hospitalization. Cellulitis improved significantly during hospitalization. Patient will follow up in the office on February 07 Objective Vital signs: Temp Pulse Resp BP Pulse Ox 97.3 F L 82 16 151/79 H 97 02/04/21 04:00 02/04/21 04:00 02/04/21 04:00 02/04/21 04:00 02/04/21 04:00 no acute distress - *Routine Respiratory Exam Present: CTA bilaterally - *Routine Cardiovascular Exam Present: RRR - *Routine Extremities Exam Present: edema. Absent: cyanosis, clubbing - *Routine Skin Exam Present: wounds (Multiple small superficial open wound without active drainage on left lower extremity. Erythema had resolved at discharge) Results Labs on day of discharge: Preliminary micro results at discharge 02/01/21 00:46 Blood Culture - Preliminary Blood Gram Positive Cocci 02/01/21 00:46 Blood Culture - Preliminary Blood Gram Positive Cocci DS: Diagnosis - Discharge Diagnosis (1) Cellulitis of left leg Status: Acute (2) Cellulitis of left foot Status: Acute (3) Epilepsy Status: Acute (4) Gram-positive bacteremia Status: Suspected Discharge Plan - Patient Discharge Instructions ACTIVITY: Continue current activity DIET: continue same diet Additional Instructions: Return Tomorrow Morning 02/05 for an infusion of IV antibiotic. Begin your antibiotic pills on Saturday night Patient Instructions: DI for Cellulitis -- Adult, Cellulitis - Follow up Plan Follow up with: Dane Vuong MD [Staff Physician] - 02/07/21 11:30 am Disposition: Home, Self-Care Condition at discharge:: Improved Home Medications: Home Medications Medication Instructions Recorded Confirmed Type Furosemide [Lasix 40mg tablet] 40 mg PO BIDL 02/01/21 02/05/21 History Piroxicam 10 mg PO BID 02/01/21 02/05/21 History Primidone 500 mg PO BID 02/01/21 02/05/21 History Tamsulosin HCl [Flomax 0.4mg 0.4 mg PO HS 02/01/21 02/05/21 History capsule] Trazodone HCl 100 mg PO HS 02/01/21 02/05/21 History levETIRAcetam [Levetiracetam] 750 mg PO BID 02/01/21 02/05/21 History predniSONE [Prednisone 5mg 5 mg PO DAILY 02/01/21 02/05/21 History Tab] cephALEXin [cephALEXin 500mg 500 mg PO QID 02/05/21 02/05/21 History capsule*] Prescriptions/Medication Reconciliation: Continued predniSONE [Prednisone 5mg Tab] 5 mg PO DAILY Trazodone HCl 100 mg PO HS Primidone 500 mg PO BID Piroxicam 10 mg PO BID Furosemide [Lasix 40mg tablet] 40 mg PO BIDL Tamsulosin HCl [Flomax 0.4mg capsule] 0.4 mg PO HS levETIRAcetam [Levetiracetam] 750 mg PO BID No Action cephALEXin [cephALEXin 500mg capsule*] 500 mg PO QID - Problem Reconciliation Problems Reviewed?: Yes
--- NOTE | 2021-02-04 10:56 | HMH.ACPN2 ---
Internal Medicine - PN: Subj *Date: 02/04/21 *Time: 10:56 Exam Vital signs and Labs for Last 24 Hours: Temp Pulse Resp BP Pulse Ox 97.5 F L 80 16 147/75 H 98 02/04/21 08:00 02/04/21 08:00 02/04/21 08:00 02/04/21 08:00 02/04/21 08:00 I & O for Last 24 hours: Intake & Output 02/01/21 02/02/21 02/03/21 02/04/21 23:59 23:59 23:59 23:59 Intake Total 1080 / 1080 1750 / 1750 1200 / 1450 730 / 730 Balance 1080 / 1080 1750 / 1750 1200 / 1450 730 / 730 Weight 143.78 kg 143.75 kg 142.882 kg 142.88 kg Microbiology Reports for the Last 24 Hours: Microbiology 02/01/21 00:46 Blood Blood Culture - Preliminary Gram Positive Cocci 02/01/21 00:46 Blood Blood Culture - Preliminary Staphylococcus intermedius Staphylococcus simulans 02/02/21 08:03 Blood Blood Culture - Preliminary NO GROWTH AFTER 48 HOURS 02/02/21 08:03 Blood Blood Culture - Preliminary NO GROWTH AFTER 48 HOURS 02/01/21 00:52 Leg,Left Gram Stain - Final 02/01/21 00:52 Leg,Left Wound Culture - Final Staphylococcus aureus Assessment and Plan (1) Cellulitis of left leg Status: Acute Category: Medical Code(s): L03.116 - Cellulitis of left lower limb (2) Cellulitis of left foot Status: Acute Category: Medical Code(s): L03.116 - Cellulitis of left lower limb (3) Epilepsy Status: Acute Category: Medical Code(s): G40.909 - Epilepsy, unspecified, not intractable, without status epilepticus (4) Gram-positive bacteremia Status: Suspected Category: Medical Code(s): R78.81 - Bacteremia The patient's infection will respond to the chosen ABx?: Yes Is the patient receiving the right drug, dose, and route?: Yes Could a more targeted ABx be ordered?: No
== END 2021-02-04 12:33 | disposition home or self-care (01) ==
LOC: ER 22:42 → 2ND 02-01 00:49
PROVIDERS: Admitting Provider Emergency Medicine; Emergency Provider Emergency Medicine; PCP Nurse Practitioner Family; Visit Provider Family Medicine
DX: L03.116 Cellulitis of left lower limb (principal); G40.909 Epilepsy, unspecified, not intractable, without status epilepticus; R78.81 Bacteremia; Z20.822 Contact with and (suspected) exposure to COVID-19; Z79.899 Other long term (current) drug therapy
CPT/HCPCS: G0378; 36415; 80048; 80053; 80202; 83605; 84145; 85025; 85651; 86140; 87040; 87070; 87077; 87186; 87205; 96365; 99284; C9803; J3370; U0003; U0005

== ENCOUNTER 2021-02-05 11:50 | Outpatient (CLI) | payer MEDICARE, MEDICAID, SELFPAY ==
[2021-02-05 12:50] VITALS: BP 161/71; PULSE 76; RESP 18; TEMP 36.6
[2021-02-05 14:30] VITALS: BP 158/84; PULSE 84; RESP 18; TEMP 36.2; O2SAT 96
[2021-02-05 15:26] VITALS: BP 142/79; PULSE 83; RESP 18
== END 2021-02-05 15:26 | disposition home or self-care (01) ==
LOC: INF 11:51
PROVIDERS: PCP Nurse Practitioner Family; Visit Provider Nurse Practitioner Family
DX: L03.116 Cellulitis of left lower limb (principal)
CPT/HCPCS: 96365; 96366; G0463; J3370

== ENCOUNTER → 2021-11-28 16:08 | Outpatient (CLI) | payer MEDICARE, MEDICAID, SELFPAY | PROVIDERS: PCP Nurse Practitioner Family; Visit Provider Nurse Practitioner Family | DX: Z20.822 Contact with and (suspected) exposure to COVID-19 (principal) | CPT/HCPCS: C9803; U0003; U0005 ==

== ENCOUNTER 2022-11-12 22:36 | Emergency (ER) | payer MEDICARE, OTHER, SELFPAY ==
[2022-11-12 22:38] VITALS: BP 175/85; PULSE 106; RESP 20; TEMP 36.6; O2SAT 95; BMI 45.4
--- NOTE | 2022-11-12 23:39 | PC.NURSE ---
in room talking with patient at this time.
--- NOTE | 2022-11-12 23:50 | HMH.EDGENADL ---
Discharge Plan Disposition Patient Disposition: Home, Self-Care Prescriptions Prescriptions: New sulfamethoxazole-trimethoprim [Bactrim DS] 800-160 mg tablet 1 tab PO BID 10 Days Qty: 20 0RF cephalexin 500 mg capsule 500 mg PO QID 10 Days Qty: 40 0RF No Action furosemide 40 MG tablet 40 mg PO BIDL prednisone 5 MG tablet 5 mg PO DAILY primidone 250 MG tablet 500 mg PO BID tamsulosin 0.4 MG capsule 0.4 mg PO HS trazodone 100 MG tablet 100 mg PO HS piroxicam 10 MG capsule 10 mg PO BID levetiracetam 750 MG tablet 750 mg PO BID cephalexin 500 MG capsule 500 mg PO QID Referrals Follow up/Referrals: Seferino Valderrama MD [Primary Care Provider] - See instructions Activity Restrictions/Add. Instructions Additional Instructions/Restrictions: Your left lower extremity has some areas of infection superimposed upon bug bites which are most likely fleas from history. The soft tissue largely looks symmetric in comparison with your other extremity. Please follow with the primary care doctor in 48 to 72 hours to check on your wound culture results to make sure that you are on appropriate antibiotic. Take entire course of antibiotics even if your wound has completely improved. You may place topical antibiotic ointment specifically triple antibiotic ointment or Neosporin which are [id number] on this wound twice a day over the next week. Return with any spreading redness fever or other concerns. Clinical Impressions Clinical Impression: Cellulitis of left leg, Flea bite of left lower leg Instructions Patient Instructions: DI for Skin Abscess Discharge ED Provider: Adair Wilson General Adult HPI General Chief complaint: Skin/Abscess/Foreign Body Stated complaint: legs swelling, injection Time Seen by Provider: 11/12/22 23:39 Mode of Arrival: Ambulatory Source of Information: Patient and Spouse Limitations: No Limitations Description of Symptoms (Recalled from ER Triage Doc. by RN): pt has wounds on both legs patient states the dogs sleeps with them and the dog has fleas. pt has ble and wounds in varying stages on both lower legs History of Present Illness HPI narrative: Patient is a 67-year-old male with a history of epilepsy no other past medical history presenting today with weeping wounds after multiple dog flea bites to his left lower extremity. States that has some areas on the posterior aspect of his left lower leg in the anterior aspect that began as fleabites now have some foul-smelling discharge some spreading erythema no fevers or chills no necrosis no purulent drainage etc. Patient denies any significant allergies. Erythema and swelling bilateral lower extremities are symmetric from historic standpoint and at their baseline. Related Data Home Medications Medication Instructions Recorded Confirmed furosemide 40 mg tablet 40 mg PO BIDL Edema 02/01/21 02/05/21 levetiracetam 750 mg tablet 750 mg PO BID seizures 02/01/21 02/05/21 piroxicam 10 mg capsule 10 mg PO BID Pain 02/01/21 02/05/21 prednisone 5 mg tablet 5 mg PO DAILY unknown 02/01/21 02/05/21 primidone 250 mg tablet 500 mg PO BID seizures 02/01/21 02/05/21 tamsulosin 0.4 mg capsule 0.4 mg PO HS urinary retention 02/01/21 02/05/21 trazodone 100 mg tablet 100 mg PO HS Pain 02/01/21 02/05/21 cephalexin 500 mg capsule 500 mg PO QID Infection 02/05/21 02/05/21 Previous Rx's Medication Instructions Recorded cephalexin 500 mg capsule 500 mg PO QID 10 days #40 caps 11/12/22 sulfamethoxazole 800 1 tab PO BID 10 days #20 tabs 11/12/22 mg-trimethoprim 160 mg tablet (Bactrim DS) Allergies Allergy/AdvReac Type Severity Reaction Status Date / Time penicillin G [PENICILLIN G] Allergy Unknown Verified 02/05/21 13:10 [facility] Disclaimer: The information contained in this section may have been updated after the patient was seen, as this information can be updated by other users. Social
[2022-11-13 00:02] VITALS: BP 155/70; PULSE 70; RESP 18; TEMP 36.7; O2SAT 98
--- NOTE | 2022-11-15 11:21 | PC.NURSE ---
reviewed pt positive wound culture at this time and pt is on appropriate medication. no action needed at this time.
== END 2022-11-13 00:04 | disposition home or self-care (01) ==
PROVIDERS: Emergency Provider Emergency Medicine; PCP Family Medicine
DX: L03.116 Cellulitis of left lower limb (principal); S80.862S Insect bite (nonvenomous), left lower leg, sequela; G40.909 Epilepsy, unspecified, not intractable, without status epilepticus; W57.XXXS Bitten or stung by nonvenomous insect and other nonvenomous arthropods, sequela
CPT/HCPCS: 87070; 87077; 87186; 87205; 99283

== ENCOUNTER 2023-03-28 20:38 | Observation (INO) | payer MEDICARE, OTHER, SELFPAY ==
[2023-03-28 20:41] VITALS: BP 156/85; PULSE 102; RESP 18; TEMP 36.3; O2SAT 93; BMI 46.7
[2023-03-28 21:00] VITALS: BP 160/94; PULSE 99; RESP 20; O2SAT 94
--- NOTE | 2023-03-28 21:13 | XR_ITS ---
PROCEDURE INFORMATION: Exam: XR Chest Exam date and time: 03/28/2023 9:26 PM Age: 67 years old Clinical indication: Shortness of breath; Additional info: SOA TECHNIQUE: Imaging protocol: Radiologic exam of the chest. Views: 1 view. COMPARISON: CR CXR1 CHEST-PORTABLE 12/11/2016 14:03 FINDINGS: Lungs: Low lung volumes with associated vascular crowding and bibasilar atelectasis. Apical lordotic view is presented for interpretation. Pleural spaces: Unremarkable. No pleural effusion. No pneumothorax. Heart/Mediastinum: Unremarkable. No cardiomegaly. Vasculature: Mildly tortuous thoracic aorta. Vascular calcifications. Bones/joints: Unremarkable. IMPRESSION: Apical lordotic view is presented for interpretation. Within the limitations of the study, no acute findings.
[2023-03-28 21:26] LABS: VBG HCO3 25.7 mmol/L (23-30); VBG Oxygen Saturation 87.9 % (50-70); VBG PCO2 41.3 mmol/L (35-51); VBG PH 7.41 mmol/L (7.31-7.41); VBG PO2 53.6 mmol/L (28-40); VBG Total CO2 26.9 mmol/L (23-27)
[2023-03-28 21:33] LABS: Chloride 104 mmol/L (98-107)
[2023-03-28 21:34] LABS: Basophils % 0.3 % (0.1-2.0); Eosinophils # 0.1 K/mm3 (0.0-0.4); Eosinophils % 1.5 % (0.1-12.0); Hematocrit 41.6 % (42.0-52.0); Hemoglobin 13.8 g/dL (14.1-18.0); Lymphocytes # 1.5 K/mm3 (0.7-4.5); Lymphocytes % 18.9 % (10-50); Mean Corpuscular HGB Conc 33.1 g/dL (31.8-35.4); Mean Corpuscular Hemoglobin 31.1 pg (27.0-31.2); Mean Corpuscular Volume 93.7 fl (80-94); Mean Platelet Volume 8.7 fl (7.4-10.4); Monocytes # 0.5 K/mm3 (0.1-1.0); Monocytes % 5.9 % (1.7-9.3); Neutrophils # 5.9 K/mm3 (1.8-7.8); Neutrophils % 73.3 % (37.0-80.0); Platelet Count 287 K/mm3 (142-424); Red Blood Count 4.44 M/mm3 (4.60-6.20); Red Cell Distribution Width 13.9 % (11.5-17.5); Sodium 140 mmol/L (136-145)
[2023-03-28 21:36] LABS: Blood Urea Nitrogen 26 mg/dl (9-20); Creatinine Clearance Estimated 70 mL/min (50-200); Estimated Glomerular Filt Rate 84 ml/min (>60); GFR (African American) 101 ML/MIN (>60); Lactic Acid 1.4 mmol/L (0.7-2.1)
[2023-03-28 21:37] LABS: Activated Partial Thrombo Time 32.2 seconds (22.8-30.6); Alanine Aminotransferase 25 U/L (12-78); Albumin/Globulin Ratio 1.1 (1.1-1.8); Alkaline Phosphatase 108 U/L (38-126); Aspartate Amino Transferase 28 U/L (17-59); Bilirubin,Total 0.3 mg/dl (0.2-1.3); Calcium 9.2 mg/dl (8.4-10.2); Carbon Dioxide 30 mmol/L (22.0-30.0); Creatine Kinase 41 U/L (55-170); Globulin 3.6 g/dL (1.3-3.2); Glucose 119 mg/dl (74-100); Prothrombin Time 10.8 seconds (10.1-12.5); Total Protein,Serum 7.6 g/dl (6.3-8.2)
--- NOTE | 2023-03-28 21:40 | ECG_ITS ---
APPROVED REPORT Exam: Resting ECG HR:94 bpm ECG Measurements Heart Rate 94 AXES AL 188 P 59 QRSd 97 QRS -17 QT 330 T 37 QTc 382 Conclusion SINUS RHYTHM LOW QRS VOLTAGE IN PRECORDIAL LEADS [QRS DEFLECTION < 1.0 mV IN CHEST LEADS] BORDERLINE ECG UNCONFIRMED REPORT Electronically signed by : Dane Serra MD 03/29/2023 14:35:45
--- NOTE | 2023-03-28 21:42 | ED_ITS ---
Discharge Plan Disposition Patient Disposition: Admitted Condition: Good Clinical Impressions Clinical Impression: Cellulitis, Wound, open, leg Discharge ED Provider: Kala Puckett General Adult HPI General Chief complaint: Skin/Abscess/Foreign Body Stated complaint: Headache , sores on both legs Time Seen by Provider: 03/28/23 20:47 Mode of Arrival: Ambulatory Source of Information: Patient and Spouse Limitations: No Limitations Description of Symptoms (Recalled from ER Triage Doc. by RN): headache and draining sores to bilateral lower legs; had been more tired than normal; started 2 weeks ago and was seen in the ED and diagnosed with cellulitis but there are more sores more; has been wrapping with bandage, keeping it clean, and putting neosporin on it History of Present Illness HPI narrative: This patient is a 67-year-old male with a history of obesity and bilateral lower extremity cellulitis who does not follow regularly with a physician presenting to the emergency department for evaluation with concern for bilateral leg swelling, very large sores to both of his legs, and foul-smelling drainage. His notes that it started just before the last time that he was here, but it has gotten progressively worse. On medical record review, it appears that he was here on 11/12/2022. He is also been more tired than usual and complains of a headache. He has not seen a provider for this, and she has been doing local wound care at home with topical Neosporin but it is not helping. He does not keep his feet up. He has been down at all times. Related Data Home Medications Medication Instructions Recorded Confirmed furosemide 40 mg tablet 40 mg PO BIDL Edema 02/01/21 02/05/21 levetiracetam 750 mg tablet 750 mg PO BID seizures 02/01/21 02/05/21 piroxicam 10 mg capsule 10 mg PO BID Pain 02/01/21 02/05/21 prednisone 5 mg tablet 5 mg PO DAILY unknown 02/01/21 02/05/21 primidone 250 mg tablet 500 mg PO BID seizures 02/01/21 02/05/21 tamsulosin 0.4 mg capsule 0.4 mg PO HS urinary retention 02/01/21 02/05/21 trazodone 100 mg tablet 100 mg PO HS Pain 02/01/21 02/05/21 cephalexin 500 mg capsule 500 mg PO QID Infection 02/05/21 02/05/21 Previous Rx's Medication Instructions Recorded cephalexin 500 mg capsule 500 mg PO QID 10 days #40 caps 11/12/22 sulfamethoxazole 800 1 tab PO BID 10 days #20 tabs 11/12/22 mg-trimethoprim 160 mg tablet (Bactrim DS) Allergies Allergy/AdvReac Type Severity Reaction Status Date / Time penicillin G [PENICILLIN G] Allergy Unknown Verified 02/05/21 13:10 [facility] Disclaimer: The information contained in this section may have been updated after the patient was seen, as this information can be updated by other users. Social History Smoking Status: Never smoker alcohol intake: never current occupational status: employed and retired Travel in the last 8 weeks: None caffeine: Yes ROS Obtained: Yes All systems reviewed & no additional complaints except as documented Physical Exam General General appearance: alert, in no apparent distress and obese Head Head exam: atraumatic and normocephalic Eye Eye exam: Present normal appearance, PERRL and EOMI ENT ENT exam: Present normal exam, normal oropharynx, mucous membranes moist and normal external ear exam Neck Neck exam: Present normal inspection, full ROM and trachea midline; Absent tenderness Chest Chest inspection: Present normal inspection and symmetric chest wall rise; Absent tenderness Respiratory Respiratory exam: Present normal lung sounds bilaterally; Absent respiratory distress, wheezes, stridor or accessory muscle use Cardiovascular Cardiovascular exam: Present normal rhythm and tachycardia Abdominal Exam Abdominal exam: Present soft; Absent distention, tenderness or guarding Extremities Exam Extremities exam: Present full ROM, normal capillary refill, edema and other (4+ bilateral lower extremity edema with weeping wounds with foul-smelling drainage scattered on both lower legs. Erythema, warmth. Neurovascularly intact distally.); Absent tenderness Back Exam Back exam: Present normal inspection and full ROM; Absent tenderness Neurological Exam Neurological exam: Present alert, oriented X3, CN II-XII intact and normal gait; Absent motor sensory deficit Psychiatric Psychiatric exam: Present normal affect and normal mood Skin Skin exam: Present warm and dry Medical Decision Making Medical Records Medical records reviewed: Yes I reviewed the patient's medical records. Lopez Inquiry Pt receiving controlled substance: No Vital Signs: 03/28/23 20:41 03/28/23 21:00 03/28/23 23:01 Temperature 97.4 F L Temperature Source Oral Pulse Rate 99 H 85 Pulse Rate [Right Radial] 102 H Respiratory Rate 18 20 20 Blood Pressure 160/94 H 154/83 H Blood Pressure [Right Arm] 156/85 H Blood Pressure Mean 103 108 Blood Pressure Mean [Right Arm] 108 02 Sat by Pulse Oximetry 93 L 94 L 95 Oxygen Delivery Method Room Air Room Air Room Air Lab Data Lab results reviewed: Yes I reviewed the patient's lab results. Lab Results 03/28/23 21:13: VBG pH 7.41, VBG pCO2 41.3, VBG pO2 53.6 H, VBG HCO3 25.7, VBG Total CO2 26.9, VBG O2 Saturation 87.9 H, VBG Base Excess 1.0 03/28/23 21:15: WBC 8.0, RBC 4.44 L, Hgb 13.8 L, Hct 41.6 L, MCV 93.7, MCH 31.1, MCHC 33.1, RDW 13.9, Plt Count 287, MPV 8.7, Neut % (Auto) 73.3, Lymph % (Auto) 18.9, [place] % (Auto) 5.9, Eos % (Auto) 1.5, Baso % (Auto) 0.3, Neut # (Auto) 5.9, Lymph # (Auto) 1.5, [place] # (Auto) 0.5, Eos # (Auto) 0.1, Baso # (Auto) 0.0, ESR 20, PT 10.8, INR 1.00, APTT 32.2 H, D-Dimer 0.57 H, Sodium 140, Potassium 4.0, Chloride 104, Carbon Dioxide 30, Anion Gap 10.0, BUN 26 H, Creatinine 0.90, Estimated Creat Clear 70, Estimated GFR 84, Est GFR ( Amer) 101, Glucose 119 H, Lactate 1.4, Calcium 9.2, Total Bilirubin 0.3, AST 28, ALT 25, Alkaline Phosphatase 108, Total Creatine Kinase 41 L, C-Reactive Protein 34.3 H, Total Protein 7.6, Albumin 4.0, Globulin 3.6 H, Albumin/Globulin Ratio 1.1 03/28/23 21:15 03/28/23 21:15 Orders (Tests/Meds): ED MEDICATIONS Generic Name Dose Route Start Last Admin Trade Name Freq PRN Reason Stop Dose Admin Acetaminophen 650 mg 03/28/23 22:52 Acetaminophen 325mg Tab PO 04/27/23 22:51 Q4HP PRN Fever or Mild Pain (1-3) Enoxaparin Sodium 40 mg 03/29/23 09:00 Enoxaparin 40mg/0.4ml Syringe SQ 04/28/23 08:59 DAILY TEDDY Ceftriaxone Sodium 2 gm/ 100 mls @ 200 mls/hr 03/28/23 23:00 03/28/23 23:04 Sodium Chloride IV 04/07/23 22:59 200 mls/hr Q24H TEDDY Administration Vancomycin HCl 2,500 mg/ 500 mls @ 166 mls/hr 03/28/23 23:15 Sodium Chloride IV 03/29/23 02:15 ONCE ONE Miscellaneous 1 each 03/28/23 23:00 03/28/23 22:58 Vancomycin Consult Request NOTAPPLIC 04/27/23 22:59 1 each CONSULT PHARMACY TEDDY Administration Morphine Sulfate 2 mg 03/28/23 22:52 Morphine 2mg/Ml Syringe IV 04/27/23 22:51 Q2HP PRN Severe Pain (7-10) Ondansetron HCl 4 mg 03/28/23 22:52 Ondansetron 4mg/2ml Vial IV 04/27/23 22:51 Q8HP PRN Nausea Pantoprazole Sodium 40 mg 03/29/23 09:00 Pantoprazole 40mg Tablet PO 04/28/23 08:59 DAILY [facility] ORDERS Category Date Time Status XR chest portable Stat Exams 03/28/23 21:13 Completed Activated Partial Thrombo Time Stat Lab 03/28/23 21:15 Completed C-Reactive Protein Stat Lab 03/28/23 21:15 Completed Complete Blood Count Auto Diff AMLAB Lab 03/29/23 06:00 Ordered Complete Blood Count Auto Diff Stat Lab 03/28/23 21:15 Completed Comprehensive Metabolic Panel AMLAB Lab 03/29/23 06:00 Ordered Comprehensive Metabolic Panel Stat Lab 03/28/23 21:15 Completed Creatine Kinase Stat Lab 03/28/23 21:15 Completed D-Dimer Stat Lab 03/28/23 21:15 Completed ESR [Erythrocyte Sedimentation Rate] Stat Lab 03/28/23 21:15 Completed Lactic Acid Stat Lab 03/28/23 21:15 Completed Magnesium AMLAB Lab 03/29/23 06:00 Ordered Prothrombin Time INR Stat Lab 03/28/23 21:15 Completed Blood Culture Stat Micro 03/28/23 22:00 Received Wound Culture and Gram Stain Stat Micro 03/28/23 21:37 Received Venous Blood Gas Stat RT 03/28/23 21:13 Completed ECG Data Tracing #1: I reviewed this ECG and interpreted as documented below: Sinus rhythm with a ventricular rate of [address] changes concerning for ischemia. ECG initial impression date: 03/28/23 ECG initial impression time: 21:41 Medical Decision Narrative: In summary, this patient is a 67-year-old male presenting to the Emergency Department for evaluation of bilateral leg swelling and wounds with foul-smelli ng drainage as well as fatigue and headaches. Differential diagnoses considered include but are not limited to cellulitis, venous insufficiency, arterial insufficiency. Ruling out the most morbid conditions drove assessment. On exam, the patient is obese and chronically ill-appearing. He has extensive skin changes to his bilateral lower extremities with open wounds and purulent drainage. Workup included broad lab evaluation including lactic acid and blood cultures. EKG was obtained that demonstrated normal sinus rhythm with a ventricular rate of [address] changes concerning for ischemia. Chest x-ray was obtained and independently interpreted by myself which did not demonstrate acute changes. Please see radiology read for final interpretation. Labs were obtained that demonstrated elevated inflammatory markers but no other acute concerns. On exam, the patient is very chronically ill and somnolent appearing. He has very extensive changes to his lower legs and wounds with significant foul- smelling drainage. I considered antibiotics, including Dalvance, and discharge with wound care and follow-up. states that he will not follow-up and she cannot continue to take care of him at home. Patient does not verbalize much either way. Given the extent of his wounds and his poor follow-up, I feel he would benefit from admission for aggressive wound care and IV antibiotics. He was admitted and given IV vancomycin and Rocephin. I had an interactive discussion with the hospitalist. Critical Care Critical Care Time Critical Care Time: No
[2023-03-28 22:01] LABS: Erythrocyte Sedimentation Rate 20 mm/hr (0-20)
[2023-03-28 22:06] LABS: D-Dimer 0.57 ug/mL (0.0-0.5)
[2023-03-28 22:25] LABS: C-Reactive Protein 34.3 mg/L (0-4)
--- NOTE | 2023-03-28 22:52 | PC.NURSE ---
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
--- NOTE | 2023-03-28 22:55 | P.HP_ITS ---
History of Present Illness *Admission Date: 03/28/23 *Reason for visit:: cellulitis bilateral lower extremities *History of present illness: This is a 67-year-old male with a history of obesity and bilateral lower extremity chronic lymphedema with recurrent cellulitis who does not follow regularly with a physician presented to the ED c/o bilateral leg swelling, open and weeping legs. Presented with foul-smelling drainage. Patient was seen at ED last couple day for same reason. was sent home with oral abx. Per ER provider his notes that it started just before the last time that he was here, but it has gotten progressively worse. On medical record review, it appears that he was here on 11/12/2022. He is also been more tired than usual and complains of a headache. He has not seen a provider for this, and she has been doing local wound care at home with topical Neosporin but it is not helping. Admitted for further treatment and management. [facility] Disclaimer: The information contained in this section may have been updated after the patient was seen, as this information can be updated by other users. Social History Smoking Status: Never smoker alcohol intake: never current occupational status: employed and retired Travel in the last 8 weeks: None caffeine: Yes Review of Systems Review of Systems Review of systems:: pertinent systems reviewed and negative unless documented below Meds Home Medications and Allergies Home Medications Medication Instructions Recorded Confirmed Type furosemide 40 mg tablet 40 mg PO BID Fluid 02/01/21 03/29/23 History piroxicam 10 mg capsule 10 mg PO BID Pain 02/01/21 03/29/23 History primidone 250 mg tablet 500 mg PO BID seizures 02/01/21 03/29/23 History trazodone 100 mg tablet 100 mg PO HS Insomnia 02/01/21 03/29/23 History levetiracetam 1,000 mg tablet 1,000 mg PO BID Seizures 03/29/23 03/29/23 History New Prescriptions to Start Prescriptions: Allergies Allergy/AdvReac Type Severity Reaction Status Date / Time penicillin G [PENICILLIN G] Allergy Unknown Verified 02/05/21 13:10 Exam Data for Last 24 hours Vital signs and Labs for Last 24 Hours: Temp Pulse Resp BP Pulse Ox O2 Del Method 97.4 F L 99 H 20 160/94 H 94 L Room Air 03/28/23 20:41 03/28/23 21:00 03/28/23 21:00 03/28/23 21:00 03/28/23 21:00 03/28/23 21:00 Laboratory Results - last 24 hr 03/28/23 21:13: VBG pH 7.41, VBG pCO2 41.3, VBG pO2 53.6 H, VBG HCO3 25.7, VBG Total CO2 26.9, VBG O2 Saturation 87.9 H, VBG Base Excess 1.0 03/28/23 21:15: WBC 8.0, RBC 4.44 L, Hgb 13.8 L, Hct 41.6 L, MCV 93.7, MCH 31.1, MCHC 33.1, RDW 13.9, Plt Count 287, MPV 8.7, Neut % (Auto) 73.3, Lymph % (Auto) 18.9, Barber % (Auto) 5.9, Eos % (Auto) 1.5, Baso % (Auto) 0.3, Neut # (Auto) 5.9, Lymph # (Auto) 1.5, Barber # (Auto) 0.5, Eos # (Auto) 0.1, Baso # (Auto) 0.0, ESR 20, PT 10.8, INR 1.00, APTT 32.2 H, D-Dimer 0.57 H, Sodium 140, Potassium 4.0, Chloride 104, Carbon Dioxide 30, Anion Gap 10.0, BUN 26 H, Creatinine 0.90, Estimated Creat Clear 70, Estimated GFR 84, Est GFR ( Amer) 101, Glucose 119 H, Lactate 1.4, Calcium 9.2, Total Bilirubin 0.3, AST 28, ALT 25, Alkaline Phosphatase 108, Total Creatine Kinase 41 L, C-Reactive Protein 34.3 H, Total Protein 7.6, Albumin 4.0, Globulin 3.6 H, Albumin/Globulin Ratio 1.1 I & O for Last 24 hours: Intake & Output 03/25/23 03/26/23 03/27/23 03/28/23 23:59 23:59 23:59 23:59 Weight 143.789 kg Constitutional Constitutional: mild distress, morbidly obese and cooperative *Routine HEENT Exam Head: Present normocephalic and atraumatic Eye: Present EOMI, PERRL and normal accommodation ENT: Present mucous membranes moist *Routine Neck Exam Neck: Present supple, full ROM and trachea midline *Routine Respiratory Exam Respiratory: Present decreased breath sounds, normal respiratory effort and symmetric chest movement; Absent respiratory distress *Routine Cardiovascular Exam Cardiovascular: Present RRR, Normal S1 and Normal S2 *Routine Abdominal Exam Abdominal: Present soft, normoactive bowel sounds and obese; Absent organomegaly *Routine Rectal Exam Rectal:: deferred *Routine Genitalia Exam Genitalia:: deferred *Routine Extremities Exam Extremities: Present edema, pulses intact and tenderness *Routine Skin Exam Skin: Present erythema, lesions, wounds and rash *Routine Neurological Exam Neurological: Present alert, oriented X3, normal reflexes, moving all extremities and normal speech Routine Psychiatric Exam Psychiatric: Present normal thought process, cooperative and good judgment H&P: Result Imaging and Cardiology EKG: Status: image reviewed by me and Preliminary report Chest x-ray: Status: image reviewed by me, Preliminary report and final report Assessment and Plan *Assessment and plan (1) Cellulitis: Status: Acute Qualifiers: Laterality: unspecified laterality Site of cellulitis: extremity Site of cellulitis of extremity: lower extremity Qualified Code(s): L03.119 - Cellulitis of unspecified part of limb Category: Medical Code(s): L03.90 - Cellulitis, unspecified (2) Chronic acquired lymphedema: Status: Acute Category: Medical Code(s): I89.0 - Lymphedema, not elsewhere classified (3) Wound, open, leg: Status: Acute Qualifiers: Encounter type: initial encounter Laterality: bilateral Qualified Code(s): S81.801A - Unspecified open wound, right lower leg, initial encounter; S81.802A - Unspecified open wound, left lower leg, initial encounter Category: Medical Code(s): S81.809A - Unspecified open wound, unspecified lower leg, initial encounter (4) Obese: Status: Acute Qualifiers: Body mass index: BMI 45.0-49.9 Obesity classification: adult class 3 (BMI >= 40) Obesity type: due to excess calories Serious obesity comorbidity presence: with serious comorbidity Qualified Code(s): E66.01 - Morbid (severe) obesity due to excess calories; Z68.42 - Body mass index [BMI] 45.0-49.9, adult Category: Medical Code(s): E66.9 - Obesity, unspecified (5) Sturge-Fang syndrome: Status: Chronic Category: Medical Code(s): Q85.89 - Other phakomatoses, not elsewhere classified (6) Epilepsy: Status: Acute Category: Medical Code(s): G40.909 - Epilepsy, unspecified, not intractable, without status epilepticus Plan 67-year-old male with a history of obesity and bilateral lower extremity chronic lymphedema with recurrent cellulitis who does not follow regularly with a physician presented to the ED c/o bilateral leg swelling, open and weeping legs. on arrival patient presented with visible swollen legs. open sore. Worsened on the right side. Concerning for chronic venous stasis and recurrent cellulitis. Previous Hx of Staph infections. labs was obtained. reviewed. WBC are normal. CRP elevated. Discussion made with ED provider. Due to high risk of rapidly infection spreading and complication and after failure as outpatient treatment. We were agreed for admission. Plan as follow: -Cellulitis of the bilateral lower extremity: Admit patient for medical services. Dispo MedSurg Wound and blood culture pending. Previous history of staph infection Started on vancomycin and clindamycin Wound care consult. Pain managed Monitor for sepsis Repeat labs in the morning -Chronic bilateral lower lymphedema, with open wound: Patient may be beneficial for lymphedema wrap Wound care consult. 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 Continue Keppra and primidone. -Morbidly obesity: Will complicate all aspects of care. Lovenox for DVT prophylaxis. On Protonix Full code Rounded on patient after nurse practitioner. Personally examined and interviewed patient. Agree with exam findings and care plan as documented.
--- NOTE | 2023-03-28 22:55 | PC.NURSE ---
OBSERVATION ADMISSION TO 266 WITH DX OF CELLULITIS TO SERVICE OF THE HOSPITALIST.
[2023-03-28] MEDS: VANCOMYCIN CONSULT REQUEST 1 EACH NOTAPPLIC (22:58)
[2023-03-28 23:01] VITALS: BP 154/83; PULSE 85; RESP 20; O2SAT 95
[2023-03-28] MEDS: CEFTRIAXONE SODIUM 2 GM in 0.9 % SODIUM CHLORIDE 100 ML IV (23:04)
--- NOTE | 2023-03-28 23:30 | PC.NURSE ---
called report to Lisa HOLLY
[2023-03-28 23:42] VITALS: BP 154/83; PULSE 95; RESP 18; TEMP 36.4; O2SAT 93
[2023-03-29] VITALS: BP 159/88; PULSE 78; PULSE 88; RESP 14; RESP 16; TEMP 37.2; O2SAT 96; O2SAT 98
[2023-03-29] MEDS: VANCOMYCIN HCL 2,500 MG in 0.9 % SODIUM CHLORIDE 500 ML 166 MG IV (01:08)
[2023-03-29] MEDS: DOCUSATE SODIUM 100 MG CAPSULE PO ×2 (01:42→20:36)
[2023-03-29 04:00] VITALS: BP 163/79; PULSE 100; RESP 17; TEMP 37.3; O2SAT 94; BMI 47.3
--- NOTE | 2023-03-29 05:37 | PC.NURSE ---
patient with frequency in urinating. Calling out every hour to use urinal, and only producing 100 ml at a time. Patient with dx of BPH but has not been on tamsulosin for this issue in 4 months according to due to not being able to make it to doctor visit. Pt was bladder scanned and residual urine 160ml noted. No intervention at this time.
[2023-03-29 06:13] LABS: Basophils % 0.2 % (0.1-2.0); Eosinophils % 0.2 % (0.1-12.0); Hematocrit 40.8 % (42.0-52.0); Hemoglobin 13.3 g/dL (14.1-18.0); Lymphocytes # 1.2 K/mm3 (0.7-4.5); Lymphocytes % 10.3 % (10-50); Mean Corpuscular HGB Conc 32.6 g/dL (31.8-35.4); Mean Corpuscular Hemoglobin 30.5 pg (27.0-31.2); Mean Corpuscular Volume 93.5 fl (80-94); Mean Platelet Volume 8.4 fl (7.4-10.4); Monocytes # 0.5 K/mm3 (0.1-1.0); Monocytes % 4.7 % (1.7-9.3); Neutrophils # 9.5 K/mm3 (1.8-7.8); Neutrophils % 84.7 % (37.0-80.0); Platelet Count 274 K/mm3 (142-424); Red Blood Count 4.37 M/mm3 (4.60-6.20); Red Cell Distribution Width 13.9 % (11.5-17.5); White Blood Count 11.2 K/mm3 (4.8-10.8)
[2023-03-29 06:19] LABS: Alanine Aminotransferase 22 U/L (12-78); Albumin Level 3.7 g/dl (3.5-5.0); Albumin/Globulin Ratio 1.2 (1.1-1.8); Alkaline Phosphatase 96 U/L (38-126); Anion Gap 10.9 mEq/L (5-15); Aspartate Amino Transferase 23 U/L (17-59); Bilirubin,Total 0.3 mg/dl (0.2-1.3); Blood Urea Nitrogen 20 mg/dl (9-20); Calcium 8.8 mg/dl (8.4-10.2); Carbon Dioxide 27 mmol/L (22.0-30.0); Chloride 105 mmol/L (98-107); Creatinine Clearance Estimated 67 mL/min (50-200); Estimated Glomerular Filt Rate 112 ml/min (>60); GFR (African American) 135 ML/MIN (>60); Globulin 3.2 g/dL (1.3-3.2); Glucose 127 mg/dl (74-100); Magnesium 1.8 mg/dl (1.6-2.3); Potassium 3.9 mmoL/L (3.5-5.1); Sodium 139 mmol/L (136-145); Total Protein,Serum 6.9 g/dl (6.3-8.2)
--- NOTE | 2023-03-29 07:34 | EXP.PHA.CONS ---
Pharmacy Consult Date: 03/29/23 Time: 07:34 Referring provider: DR. PAYAN Reason for Consult:: VANCOMYCIN DOSING Allergies Allergy/AdvReac Type Severity Reaction Status Date / Time penicillin G [PENICILLIN G] Allergy Unknown Verified 02/05/21 13:10 Home Medications Medication Instructions Recorded Confirmed Type furosemide 40 mg tablet 40 mg PO BIDL Edema 02/01/21 03/29/23 History levetiracetam 750 mg tablet 750 mg PO BID seizures 02/01/21 03/29/23 History piroxicam 10 mg capsule 10 mg PO BID Pain 02/01/21 03/29/23 History primidone 250 mg tablet 500 mg PO BID seizures 02/01/21 03/29/23 History trazodone 100 mg tablet 100 mg PO HS Pain 02/01/21 03/29/23 History New Prescriptions to Start Prescriptions: Height: 1.75 m Weight: 145 kg Laboratory Results:: Laboratory Results - last 24 hr 03/28/23 21:13: VBG pH 7.41, VBG pCO2 41.3, VBG pO2 53.6 H, VBG HCO3 25.7, VBG Total CO2 26.9, VBG O2 Saturation 87.9 H, VBG Base Excess 1.0 03/28/23 21:15: WBC 8.0, RBC 4.44 L, Hgb 13.8 L, Hct 41.6 L, MCV 93.7, MCH 31.1, MCHC 33.1, RDW 13.9, Plt Count 287, MPV 8.7, Neut % (Auto) 73.3, Lymph % (Auto) 18.9, [place] % (Auto) 5.9, Eos % (Auto) 1.5, Baso % (Auto) 0.3, Neut # (Auto) 5.9, Lymph # (Auto) 1.5, [place] # (Auto) 0.5, Eos # (Auto) 0.1, Baso # (Auto) 0.0, ESR 20, PT 10.8, INR 1.00, APTT 32.2 H, D-Dimer 0.57 H, Sodium 140, Potassium 4.0, Chloride 104, Carbon Dioxide 30, Anion Gap 10.0, BUN 26 H, Creatinine 0.90, Estimated Creat Clear 70, Estimated GFR 84, Est GFR ( Amer) 101, Glucose 119 H, Lactate 1.4, Calcium 9.2, Total Bilirubin 0.3, AST 28, ALT 25, Alkaline Phosphatase 108, Total Creatine Kinase 41 L, C-Reactive Protein 34.3 H, Total Protein 7.6, Albumin 4.0, Globulin 3.6 H, Albumin/Globulin Ratio 1.1 03/29/23 05:20: WBC 11.2 H D, RBC 4.37 L, Hgb 13.3 L, Hct 40.8 L, MCV 93.5, MCH 30.5, MCHC 32.6, RDW 13.9, Plt Count 274, MPV 8.4, Neut % (Auto) 84.7 H, Lymph % (Auto) 10.3, [place] % (Auto) 4.7, Eos % (Auto) 0.2, Baso % (Auto) 0.2, Neut # (Auto) 9.5 H, Lymph # (Auto) 1.2, [place] # (Auto) 0.5, Eos # (Auto) 0.0, Baso # (Auto) 0.0, Sodium 139, Potassium 3.9, Chloride 105, Carbon Dioxide 27, Anion Gap 10.9, BUN 20, Creatinine 0.70 D, Estimated Creat Clear 67, Estimated GFR 112, Est GFR ( Amer) 135 D, Glucose 127 H, Calcium 8.8, Magnesium 1.8, Total Bilirubin 0.3, AST 23, ALT 22, Alkaline Phosphatase 96, Total Protein 6.9, Albumin 3.7, Globulin 3.2, Albumin/Globulin Ratio 1.2 Assessment and Plan Assessment and plan all Dx Assessment and Plan for all problems:: Pharmacokinetic dosing service Objective: Patient: Floor: Age: 67 yo Serum creatinine: 0.70 mg/dL Height: 68.9 Inches Weight (kg): 145 Assessment: IBW (kg): 70.47 Dosing wt(kg): 145 Estimated Creatinine clearance (ml/min): 99.3 CRCL method: Cockcroft and Gault using ibw(default). Drug selected: Vancomycin Loading dose (mg): Vd (liters): 116.0 (factor used: 0.8 L/kg) Oscar (hr-1): 0.087 Half life (hrs): 7.97 CLvanco=?? 10.092 L/hr Recommended dose: 1750 mg Interval: 8 hrs Infusion time (hrs): 2.0 Predicted peak (mcg/mL): 27.6 Predicted trough (mcg/mL): 16.38 Total body weight is being used for vancomycin dosing. Recommendations: Give Vancomycin 1750 mg q 8 hrs with an expected Cpeak of 27.6 mcg/ml and an expected Ctrough of 16.38 mcg/ml AUC 0-24 /MELISSA Data: MELISSA 0.5 mcg/mL:?? AUC/MELISSA:? 1040.4 MELISSA 1.0 mcg/mL:?? AUC/MELISSA:? 520.2 --------- MELISSA 1.5 mcg/mL:?? AUC/MELISSA:? 346.8 MELISSA 2.0 mcg/mL:?? AUC/MELISSA:? 260.1 Thank you for the consult, will continue to follow. -MAMIE ELAINE, RICCARDOD
[2023-03-29 07:48] VITALS: BP 125/70; PULSE 98; RESP 18; TEMP 36.6; O2SAT 97
--- NOTE | 2023-03-29 09:36 | HMH.PHAINT1 ---
Pharmacy Intervention Comments: MEDICATION RECONCILIATION COMPLETED ON PATIENT USING EXTERNAL FILL HISTORY FROM PHARMACY. -MAMIE ELAINE, RICCARDOD
[2023-03-29] MEDS: CLINDAMYCIN PHOSPHATE/D5W 600 MG/50 ML PIGGYBACK 100 MG IV ×3 (10:00→23:44)
[2023-03-29] MEDS: levETIRAcetam 500 MG TABLET 750 MG PO (10:05)
[2023-03-29] MEDS: ENOXAPARIN 40MG/0.4ML SYRINGE 40 MG SQ ×2 (10:05→20:35)
[2023-03-29] MEDS: FUROSEMIDE 40MG/4ML VIAL 40 MG IV ×2 (10:05→15:59)
[2023-03-29] MEDS: PRIMIDONE 250MG TABLET 500 MG PO ×2 (10:06→20:43)
[2023-03-29] MEDS: PANTOPRAZOLE 40MG TABLET 40 MG PO (10:06)
[2023-03-29] MEDS: POLYETHYLENE GLYCOL 3350 17 GM PACKET PO (10:07)
--- NOTE | 2023-03-29 10:36 | EXP.ACUTE.PN ---
Subjective *Date: 03/29/23 *Time: 13:06 Interval history: Alert and oriented this morning. Afebrile overnight. Significant edema on exam. Denies any chest pain or shortness of breath. Initiated on Lasix today. Kidney function normal. White cell count bumped. Wound care assisting with legs. Medical Exam Vital signs and Labs for Last 24 Hours: Vital Signs Temp Pulse Pulse Resp BP BP Pulse Ox 03/29/23 07:48 97.8 F 98 H 18 125/70 97 03/29/23 04:00 99.2 F 100 H 17 163/79 H 94 L 03/29/23 00:00 99 F 78 16 159/88 H 96 03/29/23 01:00 03/29/23 00:00 99.0 F 88 14 159/88 H 98 03/28/23 23:00 03/29/23 07:00 03/29/23 05:00 03/29/23 03:00 03/28/23 23:42 97.6 F 95 H 18 154/83 H 03/28/23 23:01 85 20 154/83 H 95 03/28/23 21:00 99 H 20 160/94 H 94 L 03/28/23 20:41 97.4 F L 102 H 18 156/85 H 93 L O2 Del Method 03/29/23 07:48 Room Air 03/29/23 04:00 Room Air 03/29/23 00:00 Room Air 03/29/23 01:00 Room Air 03/29/23 00:00 Room Air 03/28/23 23:00 Room Air 03/29/23 07:00 Room Air 03/29/23 05:00 Room Air 03/29/23 03:00 Room Air 03/28/23 23:42 Room Air 03/28/23 23:01 Room Air 03/28/23 21:00 Room Air 03/28/23 20:41 Room Air Intake and Output 03/28/23 03/29/23 03/29/23 23:59 07:59 15:59 Intake Total 240 / 600 360 / 600 Output Total 850 / 850 Balance -610 / -250 360 / -250 Intake: Intake, Oral Amount 240 / 600 360 / 600 Output: Output, Urine Amount 850 / 850 Other: Number of Bowel Movements 1 Weight 143.789 kg 145 kg Patient Weight 03/29/23 23:59 Weight 145 kg Laboratory Results - last 24 hr 03/28/23 21:13: VBG pH 7.41, VBG pCO2 41.3, VBG pO2 53.6 H, VBG HCO3 25.7, VBG Total CO2 26.9, VBG O2 Saturation 87.9 H, VBG Base Excess 1.0 03/28/23 21:15: WBC 8.0, RBC 4.44 L, Hgb 13.8 L, Hct 41.6 L, MCV 93.7, MCH 31.1, MCHC 33.1, RDW 13.9, Plt Count 287, MPV 8.7, Neut % (Auto) 73.3, Lymph % (Auto) 18.9, [place] % (Auto) 5.9, Eos % (Auto) 1.5, Baso % (Auto) 0.3, Neut # (Auto) 5.9, Lymph # (Auto) 1.5, [place] # (Auto) 0.5, Eos # (Auto) 0.1, Baso # (Auto) 0.0, ESR 20, PT 10.8, INR 1.00, APTT 32.2 H, D-Dimer 0.57 H, Sodium 140, Potassium 4.0, Chloride 104, Carbon Dioxide 30, Anion Gap 10.0, BUN 26 H, Creatinine 0.90, Estimated Creat Clear 70, Estimated GFR 84, Est GFR ( Amer) 101, Glucose 119 H, Lactate 1.4, Calcium 9.2, Total Bilirubin 0.3, AST 28, ALT 25, Alkaline Phosphatase 108, Total Creatine Kinase 41 L, C-Reactive Protein 34.3 H, Total Protein 7.6, Albumin 4.0, Globulin 3.6 H, Albumin/Globulin Ratio 1.1 03/29/23 05:20: WBC 11.2 H D, RBC 4.37 L, Hgb 13.3 L, Hct 40.8 L, MCV 93.5, MCH 30.5, MCHC 32.6, RDW 13.9, Plt Count 274, MPV 8.4, Neut % (Auto) 84.7 H, Lymph % (Auto) 10.3, [place] % (Auto) 4.7, Eos % (Auto) 0.2, Baso % (Auto) 0.2, Neut # (Auto) 9.5 H, Lymph # (Auto) 1.2, [place] # (Auto) 0.5, Eos # (Auto) 0.0, Baso # (Auto) 0.0, Sodium 139, Potassium 3.9, Chloride 105, Carbon Dioxide 27, Anion Gap 10.9, BUN 20, Creatinine 0.70 D, Estimated Creat Clear 67, Estimated GFR 112, Est GFR ( Amer) 135 D, Glucose 127 H, Calcium 8.8, Magnesium 1.8, Total Bilirubin 0.3, AST 23, ALT 22, Alkaline Phosphatase 96, Total Protein 6.9, Albumin 3.7, Globulin 3.2, Albumin/Globulin Ratio 1.2 I & O for Labs for Last 24 Hours: Intake & Output 03/26/23 03/27/23 03/28/23 03/29/23 23:59 23:59 23:59 23:59 Intake Total 600 / 600 Output Total 850 / 850 Balance -250 / -250 Weight 143.789 kg 145 kg Constitutional: Present no acute distress, morbidly obese, chronically ill appearing and cooperative Head: Present atraumatic and normocephalic ENT: Present normal exam Comment:: Prominent port wine stain left forehead Respiratory: Present normal respiratory effort; Absent rhonchi, wheezes or crackles Cardiac: Present Reg Rate and Rhythm GI: Present soft and normal bowel sounds; Absent distention or tenderness Extremities: Present normal inspection, full ROM and edema (3+ edema to his knees, mild erythema) Skin: Present intact and erythema Comment:: Legs tender to palpation Neuro: Present Grossly Intact, alert, awake, oriented x 3 and moves all extremities Assessment and Plan *Assessment and plan (1) Cellulitis: Status: Acute Qualifiers: Laterality: unspecified laterality Site of cellulitis: extremity Site of cellulitis of extremity: lower extremity Qualified Code(s): L03.119 - Cellulitis of unspecified part of limb Category: Medical Code(s): L03.90 - Cellulitis, unspecified (2) Chronic acquired lymphedema: Status: Acute Category: Medical Code(s): I89.0 - Lymphedema, not elsewhere classified (3) Wound, open, leg: Status: Acute Qualifiers: Encounter type: initial encounter Laterality: bilateral Qualified Code(s): S81.801A - Unspecified open wound, right lower leg, initial encounter; S81.802A - Unspecified open wound, left lower leg, initial encounter Category: Medical Code(s): S81.809A - Unspecified open wound, unspecified lower leg, initial encounter (4) Obese: Status: Acute Qualifiers: Body mass index: BMI 45.0-49.9 Obesity classification: adult class 3 (BMI >= 40) Obesity type: due to excess calories Serious obesity comorbidity presence: with serious comorbidity Qualified Code(s): E66.01 - Morbid (severe) obesity due to excess calories; Z68.42 - Body mass index [BMI] 45.0-49.9, adult Category: Medical Code(s): E66.9 - Obesity, unspecified (5) Epilepsy: Status: Acute Category: Medical Code(s): G40.909 - Epilepsy, unspecified, not intractable, without status epilepticus (6) Sturge-Fang syndrome: Status: Chronic Category: Medical Code(s): Q85.89 - Other phakomatoses, not elsewhere classified Plan 67-year-old male with a history of obesity and bilateral lower extremity chronic lymphedema with recurrent cellulitis who does not follow regularly with a physician presented to the ED c/o bilateral leg swelling, open and weeping legs. on arrival patient presented with visible swollen legs. open sore. Worsened on the right side. Concerning for chronic venous stasis and recurrent cellulitis. Previous Hx of Staph infections. labs obtained. reviewed. WBC are normal. CRP elevated. Discussion made with ED provider. Due to high risk of rapidly infection spreading and complication and after failure as outpatient treatment. We were agreed for admission. On morning labs, he had a bump in his white cell count but remains afebrile. Significant edema. Continues to require inpatient management for diuresis and monitoring of improvement prior to transitioning to oral antibiotics. Problems addressed as follows: -Cellulitis of the bilateral lower extremity: - Lymphedema Concern for cellulitis superimposed on lymphedema. Continue vancomycin IV, monitor for toxicity. Continue clindamycin IV, pending response over the next 24 hours will transition to oral antibiotics. Wound care consult placed, appreciate their recommendations. White cell count elevated to 11,000, repeat CBC, CMP, magnesium ordered for the morning. Diuresis with Lasix 40 IV twice daily. Monitor for negative fluid status. Magnesium 1.8, potassium normal. Monitor for need for replacement. 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 Continue his levetiracetam and primidone per home regimen of 1000 mg twice daily and 500 mg twice daily respectively Seizure precautions -Morbidly obesity: Will complicate all aspects of care. Lovenox for DVT prophylaxis On Protonix Full code
[2023-03-29] MEDS: VANCOMYCIN/WATER FOR INJ (PEG) 1.75 GM/350 ML PIGGYBACK IV ×2 (10:39→17:20)
--- NOTE | 2023-03-29 10:50 | HMH.PTEV ---
Physical Therapy Evaluation Rehab PT IP Evaluation Start: 03/29/23 07:47 Freq: ONCE Status: Active Protocol: Document 03/29/23 09:30 TONIE (Rec: 03/29/23 10:49 TONIE [email or web address]) Subjective/History History History Per history and physical: This is a 67-year-old male with a history of obesity and bilateral lower extremity chronic lymphedema with recurrent cellulitis who does not follow regularly with a physician presented to the ED c/o bilateral leg swelling, open and weeping legs. Presented with foul-smelling drainage. Patient was seen at ED last couple day for same reason. was sent home with oral abx. Per ER provider his notes that it started just before the last time that he was here, but it has gotten progressively worse. On medical record review, it appears that he was here on 01/2023. He is also been more tired than usual and complains of a headache. He has not seen a provider for this, and she has been doing local wound care at home with topical Neosporin but it is not helping. Admitted for further treatment and management. Subjective Subjective Pt agreeable to PT evaluation. PLOF: Pt reports he lives with his in a home with 1 GREG and ramp enterance. Pt reports he ambulated with or without a RW short distances in the home. Pt reports he avoided community ambulation when possible but does go to doctor's appointments with driving. New diagnosis of cancer in past 12 No months? Rehab PT IP Eval Objective Appearance Patient Behavior Appropriate,Cooperative Patient Orientation Person,Place,Time Speech Pattern Clear Ambulation Patient Able to Ambulate Yes Ambulation Observation Ambulation Distance (feet) 38 Ambulation Assistive Device Rolling Walker Ambulation Ability Independent Transfers Bed Transfer Ability Independent Chair Transfer Ability Independent Sit to Stand Bed Transfer Ability Independent Rehab PT IP prob,goals,plan Problems Date of Evaluation: 03/29/23 Rehab Potential Rehab Potential Innapropriate for Skilled Therapy Discharge Plan PT Discharge Plan Pt's functional mobility is at baseline and is okay to d/c home when deemed medically necessary. Educated pt on ambulating with RW for safety at home. Not appropriate for skilled therapy at this time d /t current level of functional mobility being at baseline/ IND. Eval Complexity Eval Charge Codes 91119 - High Complexity PHYSICIAN CERTIFICATION: I certify the specified therapy services for Félix Morales are required, authorized, and reviewed every 30 days.
--- NOTE | 2023-03-29 11:53 | HMH.OTEV ---
OT Inpatient Evaluation Rehab OT IP Evaluation Start: 03/29/23 07:47 Freq: ONCE Status: Active Protocol: Document 03/29/23 11:36 NHIRADHA (Rec: 03/29/23 11:53 BRITTNEYSHERRY [id number]) Rehab OT IP Assessment Subjective History This is a 67-year-old male with a history of obesity and bilateral lower extremity chronic lymphedema with recurrent cellulitis who does not follow regularly with a physician presented to the ED c/o bilateral leg swelling, open and weeping legs. Presented with foul-smelling drainage. Patient was seen at ED last couple day for same reason. was sent home with oral abx. Per ER provider his notes that it started just before the last time that he was here, but it has gotten progressively worse. On medical record review, it appears that he was here on 01/2023. He is also been more tired than usual and complains of a headache. He has not seen a provider for this, and she has been doing local wound care at home with topical Neosporin but it is not helping. Admitted for further treatment and management. Patient lives at home with in mobile home with 2-3 GREG. Patient able to complete all ADLs independently and will use RW for ambulation. Subjective I can get up. Analysis Patient's safety and functional mobility with bed mobility, transfers, and ADLs. Patient completed all tasks with SBA. No LOB noted. Continent of bowel and bladder mgt with usage of BSC. Patient appears to be at baseline. Objective Patient Orientation Person,Place,Name,Age,Birthday ,Year Right Upper Extremity Gross ROM WFL Left Upper Extremity Gross ROM WFL Bed Mobility bed mobility - supine/sit Assist Level Supervision/Stand by Transfer Training Sit/Stand/Pivot Transfer Assist Level Supervision/Stand by Chair Transfer Ability Supervision/Stand by Chair Transfer Technique Sit to/from Ambulatory Chair Transfer Assistive Devices Rolling Walker Performing Toilet Hygiene Ability Independent Overall Commode/Toilet Transfer Ability Independent Rehab OT IP prob,goals,plan Problems Date of Evaluation: 03/29/23 Rehab Potential Rehab Potential Good Equipment Needs Assistive Devices Rolling / Wheeled Walker Discharge Plan OT Discharge Plan Patient appears to be at baseline. Patient may return home with family after medical d/c. Eval Complexity Eval Charge Codes 63968 - Low Complexity PHYSICIAN CERTIFICATION: I certify the specified therapy services for Félix Morales are required, authorized, and reviewed every 30 days.
[2023-03-29 13:14] VITALS: BMI 47.3
--- NOTE | 2023-03-29 15:05 | HMH.PTWOUND ---
Rehab Inpt Wound Evaluation Rehab IP Wound Evaluation Start: 03/28/23 22:52 Freq: ONCE Status: Active Protocol: Document 03/29/23 13:15 PHOANDREINA (Rec: 03/29/23 15:04 PHORNE [id number]) Rehab PT Wound Assessment Subjective Subjective 67 yowm adm to [facility] with LE cellulitis. He has hx of chronic lymphedema. He presents with B LE wounds and 2+ pitting edema. R LE worse than L. Multiple wounds present with the largest wound measured below. Wound [place] Wound Type Stasis Ulcer Is This a Chronic Wound Yes Wound Length (cm) 6.5 Wound Width (cm) 6.5 Wound Depth (cm) 0.1 Wound Bed Appearance Beefy Red,Yellow Percentage Granulated (%) 90 Wound Margins Description Indistinct Surrounding Tissue Appearance Bright Red Edema Type Pitting Edema Degree 2+ Query Text:1+ Trace, Barely Detectable, Rebound 15-30 seconds 2+ Moderate, Slight Indentation, Rebound 10-20 seconds 3+ Deep, Deeper Indentation, Rebound > 30 seconds 4+ Very Deep, Rebound > 60 seconds Edema Appearance Puffy Wound Drainage Description Serous Drainage Amount Small Wound Topical Solution/Irrigant Saline Irrigant Primary Dressing Unna Boot Comment 2-layer zinc compression wrap system Dressing Change Patient Tolerance Tolerated Well Plan/Recommendation Comment Continue 2 layer compression wraps once every 3-4 days as pt tolerates. No current needs for debridement of devitalized tissue. Eval Complexity Eval Charge Codes 94766 - High Complexity PHYSICIAN CERTIFICATION: I certify the specified therapy services for Félix Morales are required, authorized, and reviewed every 30 days.
[2023-03-29 15:50] VITALS: BP 161/90; PULSE 71; RESP 22; TEMP 36.7; O2SAT 96
[2023-03-29] MEDS: ACETAMINOPHEN 325MG TAB 650 MG PO (15:55)
--- NOTE | 2023-03-29 17:40 | PC.NURSE ---
Pt is sitting up in bed eating dinner at this time with assistance of his . Pt has stated that he is tired and wants to sleep, but has been observed by staff to be asleep during rounding. Pt noted to have tremors and/or shivering this shift. He has stated he is cold. No fever noted. Has been up to the chair and ambulated with assistance. Wound care provided by PT. Pt is incontinent of urine. Purewick in place. No BM. is at bedside. Call light within reach. Safety measures in place.
[2023-03-29 20:00] VITALS: BP 156/62; PULSE 79; RESP 16; TEMP 36.6; O2SAT 97
[2023-03-29] MEDS: levETIRAcetam 500 MG TABLET 1000 MG PO (20:36)
[2023-03-29] MEDS: TRAZODONE 50MG TABLET 100 MG PO (20:37)
[2023-03-30] MEDS: VANCOMYCIN/WATER FOR INJ (PEG) 1.75 GM/350 ML PIGGYBACK IV ×3 (00:26→16:15)
[2023-03-30 00:54] LABS: Vancomycin,Trough 18.2 ug/mL (5.0-10.0)
[2023-03-30 04:00] VITALS: BP 149/77; PULSE 66; RESP 16; TEMP 37.3; O2SAT 94; BMI 46.2
--- NOTE | 2023-03-30 04:51 | PC.NURSE ---
Pt a&ox4. Pt does fall asleep quickly, but easily woken. Pt uses male purewick. Pt has had no complaints this shift. Pt has slept a majority of the shift. Call light in reach, bed alarm on and functioning.
[2023-03-30 05:21] LABS: Vancomycin,Peak 25.2 ug/ml (11-39)
[2023-03-30] MEDS: CLINDAMYCIN PHOSPHATE/D5W 600 MG/50 ML PIGGYBACK 100 MG IV ×2 (07:48→15:26)
[2023-03-30 08:00] VITALS: BP 153/87; PULSE 95; RESP 20; TEMP 36.2; O2SAT 95
[2023-03-30] MEDS: PRIMIDONE 250MG TABLET 500 MG PO ×2 (08:29→21:18)
[2023-03-30] MEDS: PANTOPRAZOLE 40MG TABLET 40 MG PO (08:29)
[2023-03-30] MEDS: levETIRAcetam 500 MG TABLET 1000 MG PO ×2 (08:29→21:17)
[2023-03-30] MEDS: FUROSEMIDE 40MG/4ML VIAL 40 MG IV (08:29)
[2023-03-30] MEDS: ENOXAPARIN 40MG/0.4ML SYRINGE 40 MG SQ ×2 (08:30→21:17)
[2023-03-30] MEDS: POLYETHYLENE GLYCOL 3350 17 GM PACKET PO (08:30)
[2023-03-30 10:10] LABS: Basophils % 0.4 % (0.1-2.0); Eosinophils # 0.1 K/mm3 (0.0-0.4); Eosinophils % 0.9 % (0.1-12.0); Hematocrit 39.6 % (42.0-52.0); Hemoglobin 13.3 g/dL (14.1-18.0); Lymphocytes # 1.6 K/mm3 (0.7-4.5); Lymphocytes % 18.2 % (10-50); Mean Corpuscular HGB Conc 33.7 g/dL (31.8-35.4); Mean Corpuscular Hemoglobin 31.2 pg (27.0-31.2); Mean Corpuscular Volume 92.6 fl (80-94); Mean Platelet Volume 9.6 fl (7.4-10.4); Monocytes # 0.7 K/mm3 (0.1-1.0); Monocytes % 8.2 % (1.7-9.3); Neutrophils # 6.2 K/mm3 (1.8-7.8); Neutrophils % 72.3 % (37.0-80.0); Platelet Count 274 K/mm3 (142-424); Red Blood Count 4.27 M/mm3 (4.60-6.20); Red Cell Distribution Width 13.9 % (11.5-17.5); White Blood Count 8.6 K/mm3 (4.8-10.8)
[2023-03-30 10:14] LABS: Alanine Aminotransferase 22 U/L (12-78); Albumin Level 3.6 g/dl (3.5-5.0); Alkaline Phosphatase 93 U/L (38-126); Anion Gap 11.4 mEq/L (5-15); Aspartate Amino Transferase 47 U/L (17-59); Bilirubin,Total 0.5 mg/dl (0.2-1.3); Blood Urea Nitrogen 15 mg/dl (9-20); Calcium 8.4 mg/dl (8.4-10.2); Carbon Dioxide 24 mmol/L (22.0-30.0); Chloride 100 mmol/L (98-107); Creatinine Clearance Estimated 67 mL/min (50-200); Estimated Glomerular Filt Rate 112 ml/min (>60); GFR (African American) 135 ML/MIN (>60); Globulin 3.5 g/dL (1.3-3.2); Glucose 106 mg/dl (74-100); Magnesium 1.9 mg/dl (1.6-2.3); Potassium 3.4 mmoL/L (3.5-5.1); Sodium 132 mmol/L (136-145); Total Protein,Serum 7.1 g/dl (6.3-8.2)
[2023-03-30 10:43] LABS: Ammonia 22 umol/L (9-30)
--- NOTE | 2023-03-30 11:22 | EXP.ACUTE.PN ---
Subjective *Date: 03/30/23 *Time: 11:22 Interval history: Patient alert this morning, oriented to self only. More confused than yesterday. Cannot recall how long he has been in the hospital. Denies any chest pain or shortness of breath. Afebrile. Hemodynamically stable. Medical Exam Vital signs and Labs for Last 24 Hours: Vital Signs Temp Pulse Resp BP Pulse Ox O2 Del Method 03/30/23 11:00 Room Air 03/30/23 09:00 Room Air 03/30/23 08:00 Room Air 03/30/23 08:00 97.2 F L 95 H 20 153/87 H 95 Room Air 03/30/23 06:52 Room Air 03/30/23 05:00 Room Air 03/30/23 04:00 99.1 F 66 16 149/77 H 94 L Room Air 03/30/23 03:00 Room Air 03/30/23 00:54 Room Air 03/29/23 23:00 Room Air 03/29/23 21:00 Room Air 03/29/23 20:00 Room Air 03/29/23 20:00 98 F 79 16 156/62 H 97 Room Air 03/29/23 18:43 Room Air 03/29/23 17:00 Room Air 03/29/23 15:50 98.1 F 71 22 161/90 H 96 Room Air 03/29/23 15:00 Room Air 03/29/23 12:50 Room Air Intake and Output 03/29/23 03/30/23 03/30/23 23:59 07:59 15:59 Intake Total 480 / 1720 400 / 1430 1030 / 1430 Output Total 1400 / 2250 450 / 750 300 / 750 Balance -920 / -530 -50 / 680 730 / 680 Intake: Intake, Oral Amount 480 / 1320 1030 / 1030 Intake, Total IV Amount 400 / 400 Clindamycin Phosphate/D5w 600 50 / 50 mg In 50 ml @ 100 mls/hr IV Q8H TEDDY Rx#:[id number] Vancomycin/Water For Inj (Peg) 350 / 350 1.75 gm In 350 ml @ 175 mls/hr IV Q8H TEDDY Rx#:[id number] Output: Output, Urine Amount 1400 / 2250 450 / 750 300 / 750 Other: Number of Unmeasured Voids 0 0 Weight 141.6 kg Patient Weight 03/30/23 23:59 Weight 141.6 kg Laboratory Results - last 24 hr 03/30/23 00:20: Vancomycin Trough 18.2 H 03/30/23 04:55: Vancomycin Peak 25.2 03/30/23 05:00: WBC 8.6, RBC 4.27 L, Hgb 13.3 L, Hct 39.6 L, MCV 92.6, MCH 31.2, MCHC 33.7, RDW 13.9, Plt Count 274, MPV 9.6, Neut % (Auto) 72.3, Lymph % (Auto) 18.2, [place] % (Auto) 8.2, Eos % (Auto) 0.9, Baso % (Auto) 0.4, Neut # (Auto) 6.2, Lymph # (Auto) 1.6, [place] # (Auto) 0.7, Eos # (Auto) 0.1, Baso # (Auto) 0.0, Sodium 132 L, Potassium 3.4 L, Chloride 100, Carbon Dioxide 24, Anion Gap 11.4, BUN 15, Creatinine 0.70, Estimated Creat Clear 67, Estimated GFR 112, Est GFR ( Amer) 135, Glucose 106 H, Calcium 8.4, Magnesium 1.9, Total Bilirubin 0.5, AST 47 D, ALT 22, Alkaline Phosphatase 93, Total Protein 7.1, Albumin 3.6, Globulin 3.5 H, Albumin/Globulin Ratio 1.0 L 03/30/23 10:25: Ammonia 22 I & O for Labs for Last 24 Hours: Intake & Output 03/27/23 03/28/23 03/29/23 03/30/23 23:59 23:59 23:59 23:59 Intake Total 1720 / 1720 1430 / 1430 Output Total 2250 / 2250 750 / 750 Balance -530 / -530 680 / 680 Weight 143.789 kg 145 kg 141.6 kg Constitutional: Present no acute distress, morbidly obese, chronically ill appearing and cooperative Head: Present atraumatic and normocephalic ENT: Present normal exam Comment:: Prominent port wine stain left forehead Respiratory: Present normal respiratory effort; Absent rhonchi, wheezes or crackles Cardiac: Present Reg Rate and Rhythm GI: Present soft and normal bowel sounds; Absent distention or tenderness Extremities: Present normal inspection, full ROM and edema (3+ edema to his knees, mild erythema) Skin: Present intact and erythema Comment:: Legs tender to palpation Neuro: Present Grossly Intact, alert, awake and moves all extremities Comment:: Oriented to self only Assessment and Plan *Assessment and plan (1) Cellulitis: Status: Acute Qualifiers: Laterality: unspecified laterality Site of cellulitis: extremity Site of cellulitis of extremity: lower extremity Qualified Code(s): L03.119 - Cellulitis of unspecified part of limb Category: Medical Code(s): L03.90 - Cellulitis, unspecified (2) Chronic acquired lymphedema: Status: Acute Category: Medical Code(s): I89.0 - Lymphedema, not elsewhere classified (3) Wound, open, leg: Status: Acute Qualifiers: Encounter type: initial encounter Laterality: bilateral Qualified Code(s): S81.801A - Unspecified open wound, right lower leg, initial encounter; S81.802A - Unspecified open wound, left lower leg, initial encounter Category: Medical Code(s): S81.809A - Unspecified open wound, unspecified lower leg, initial encounter (4) Obese: Status: Acute Qualifiers: Body mass index: BMI 45.0-49.9 Obesity classification: adult class 3 (BMI >= 40) Obesity type: due to excess calories Serious obesity comorbidity presence: with serious comorbidity Qualified Code(s): E66.01 - Morbid (severe) obesity due to excess calories; Z68.42 - Body mass index [BMI] 45.0-49.9, adult Category: Medical Code(s): E66.9 - Obesity, unspecified (5) Epilepsy: Status: Acute Category: Medical Code(s): G40.909 - Epilepsy, unspecified, not intractable, without status epilepticus (6) Sturge-Fang syndrome: Status: Chronic Category: Medical Code(s): Q85.89 - Other phakomatoses, not elsewhere classified (7) Confusion: Status: Acute Category: Medical Code(s): R41.0 - Disorientation, unspecified Plan 67-year-old male with a history of obesity and bilateral lower extremity chronic lymphedema with recurrent cellulitis who does not follow regularly with a physician presented to the ED c/o bilateral leg swelling, open and weeping legs. on arrival patient presented with visible swollen legs. open sore. Worsened on the right side. Concerning for chronic venous stasis and recurrent cellulitis. Previous Hx of Staph infections. labs obtained. reviewed. WBC are normal. CRP elevated. Discussion made with ED provider. Due to high risk of rapidly infection spreading and complication and after failure as outpatient treatment. We were agreed for admission. Showing improvement on labs this morning. On morning labs, he had a bump in his white cell count but remains afebrile. Significant edema. Continues to require inpatient management for diuresis and monitoring of improvement prior to transitioning to oral antibiotics. Problems addressed as follows: -Cellulitis of the bilateral lower extremity: - Lymphedema Concern for cellulitis superimposed on lymphedema. Continue vancomycin IV, monitor for toxicity. Continue clindamycin IV, pending response over the next 24 hours will transition to oral antibiotics. Wound care consult placed, appreciate their recommendations. White count improved to 8.6. Hemoglobin 13.3. No fever overnight. Repeat CBC, CMP, magnesium ordered for the morning. Sodium 132, potassium 3.4, magnesium 1.9. Appears fluid neutral for admission. 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 Continue his levetiracetam and primidone per home regimen of 1000 mg twice daily and 500 mg twice daily respectively Seizure precautions Patient more confused this morning, will hold trazodone out of concern that this is a culprit. Consider holding primidone or decreasing dosage if continues to have confusion/altered mental status. -Morbidly obesity: Will complicate all aspects of care. Lovenox for DVT prophylaxis On Protonix Full code
--- NOTE | 2023-03-30 11:59 | EXP.PHA.CONS ---
Pharmacy Consult Date: 03/30/23 Time: 11:59 Referring provider: DR. PAYAN Reason for Consult:: VANCOMYCIN LEVELS Allergies Allergy/AdvReac Type Severity Reaction Status Date / Time penicillin G [PENICILLIN G] Allergy Unknown Verified 02/05/21 13:10 Home Medications Medication Instructions Recorded Confirmed Type furosemide 40 mg tablet 40 mg PO BID Fluid 02/01/21 03/29/23 History piroxicam 10 mg capsule 10 mg PO BID Pain 02/01/21 03/29/23 History primidone 250 mg tablet 500 mg PO BID seizures 02/01/21 03/29/23 History trazodone 100 mg tablet 100 mg PO HS Insomnia 02/01/21 03/29/23 History levetiracetam 1,000 mg tablet 1,000 mg PO BID Seizures 03/29/23 03/29/23 History New Prescriptions to Start Prescriptions: Height: 1.75 m Weight: 141.6 kg Laboratory Results:: Laboratory Results - last 24 hr 03/30/23 00:20: Vancomycin Trough 18.2 H 03/30/23 04:55: Vancomycin Peak 25.2 03/30/23 05:00: WBC 8.6, RBC 4.27 L, Hgb 13.3 L, Hct 39.6 L, MCV 92.6, MCH 31.2, MCHC 33.7, RDW 13.9, Plt Count 274, MPV 9.6, Neut % (Auto) 72.3, Lymph % (Auto) 18.2, [place] % (Auto) 8.2, Eos % (Auto) 0.9, Baso % (Auto) 0.4, Neut # (Auto) 6.2, Lymph # (Auto) 1.6, [place] # (Auto) 0.7, Eos # (Auto) 0.1, Baso # (Auto) 0.0, Sodium 132 L, Potassium 3.4 L, Chloride 100, Carbon Dioxide 24, Anion Gap 11.4, BUN 15, Creatinine 0.70, Estimated Creat Clear 67, Estimated GFR 112, Est GFR ( Amer) 135, Glucose 106 H, Calcium 8.4, Magnesium 1.9, Total Bilirubin 0.5, AST 47 D, ALT 22, Alkaline Phosphatase 93, Total Protein 7.1, Albumin 3.6, Globulin 3.5 H, Albumin/Globulin Ratio 1.0 L 03/30/23 10:25: Ammonia 22 Assessment and Plan Assessment and plan all Dx Assessment and Plan for all problems:: PATIENT'S VANCOMYCIN LEVELS WERE 18.2 AND 25.2 MCG/ML FOR TROUGH AND PEAK RESPECTIVELY. RECOMMEND CONTINUING CURRENT DOSE TODAY. WILL RECHECK TROUGH LEVEL IN AM.
[2023-03-30] MEDS: BUMETANIDE 1MG/4ML VIAL 2 MG IV (15:26)
[2023-03-30 15:28] LABS: VBG Base Excess 0.2 mmol/L (-2.4-2.3); VBG HCO3 24.5 mmol/L (23-30); VBG Oxygen Saturation 81.7 % (50-70); VBG PCO2 37.8 mmol/L (35-51); VBG PH 7.43 mmol/L (7.31-7.41); VBG PO2 44.1 mmol/L (28-40); VBG Total CO2 25.7 mmol/L (23-27)
[2023-03-30 16:00] VITALS: BP 144/67; PULSE 78; RESP 20; TEMP 36.8; O2SAT 94
[2023-03-30 20:00] VITALS: BP 151/73; PULSE 72; RESP 20; TEMP 36.9; O2SAT 95
[2023-03-30] MEDS: DOCUSATE SODIUM 100 MG CAPSULE PO (21:17)
--- NOTE | 2023-03-30 21:55 | CT_ITS ---
PROCEDURE INFORMATION: Exam: CT Head Without Contrast Exam date and time: 03/30/2023 10:10 PM Age: 67 years old Clinical indication: Altered mental status/memory loss; Additional info: AMS TECHNIQUE: Imaging protocol: Computed tomography of the head without contrast. Radiation optimization: All CT scans at this facility use at least one of these dose optimization techniques: automated exposure control; mA and/or kV adjustment per patient size (includes targeted exams where dose is matched to clinical indication); or iterative reconstruction. COMPARISON: MR ANGIO HEAD WO CON 18/02/2020 12:55 FINDINGS: Brain: Calcifications of the left frontal and occipital cortex is likely chronic. This could be chronic laminar necrosis. Mild chronic brain volume loss and chronic small vessel ischemic changes. Cerebral ventricles: No ventriculomegaly. Paranasal sinuses: Mild mucosal thickening and small retention cysts in the paranasal sinuses. Mastoid air cells: Visualized mastoid air cells are well aerated. Bones/joints: Unremarkable. No acute fracture. Soft tissues: Unremarkable. IMPRESSION: No acute intracranial findings. If there is high clinical concern for acute infarction, consider MRI for further evaluation. ASSESSMENT: ASPECTS score ([place] Stroke Program Early CT Score) is 10.
[2023-03-31] MEDS: CLINDAMYCIN PHOSPHATE/D5W 600 MG/50 ML PIGGYBACK 100 MG IV ×3 (00:04→16:26)
[2023-03-31] MEDS: VANCOMYCIN/WATER FOR INJ (PEG) 1.75 GM/350 ML PIGGYBACK IV (00:41)
--- NOTE | 2023-03-31 00:59 | PC.NURSE ---
Did not take over pt care until 2029, while assessing pt, pt would not answer questions and was up to chair. Pt would stare at the wall, but would look at this rn after saying his name and tapping his shoulder. VSS. Called Mckayla Bal to assess pt due to this not being his baseline. CT of head ordered. On the way to CT, pt began to speak more and became aggravated but could not voice his needs. During CT pt would not remain in one spot and tried to sit up. Once the pt got back to the room, pt reassessed, pt then states name, , year, place, and wifes name. Pt has been resting since episode.
[2023-03-31 04:00] VITALS: BP 135/81; PULSE 66; RESP 20; TEMP 37.1; O2SAT 96; BMI 47.7
--- NOTE | 2023-03-31 05:11 | PC.NURSE ---
Pt has had no complaints. Since event, pt has rested well through the night. Pt uses male purewick. BLE wrapped, CDI. Bed alarm on and functioning.
[2023-03-31 07:40] LABS: Alanine Aminotransferase 22 U/L (12-78); Albumin Level 3.4 g/dl (3.5-5.0); Alkaline Phosphatase 89 U/L (38-126); Anion Gap 9.5 mEq/L (5-15); Aspartate Amino Transferase 27 U/L (17-59); Bilirubin,Total 0.6 mg/dl (0.2-1.3); Blood Urea Nitrogen 16 mg/dl (9-20); Calcium 8.2 mg/dl (8.4-10.2); Carbon Dioxide 27 mmol/L (22.0-30.0); Chloride 101 mmol/L (98-107); Creatinine Clearance Estimated 67 mL/min (50-200); Estimated Glomerular Filt Rate 112 ml/min (>60); GFR (African American) 135 ML/MIN (>60); Globulin 3.4 g/dL (1.3-3.2); Glucose 99 mg/dl (74-100); Magnesium 2.1 mg/dl (1.6-2.3); Potassium 3.5 mmoL/L (3.5-5.1); Sodium 134 mmol/L (136-145); Total Protein,Serum 6.8 g/dl (6.3-8.2)
[2023-03-31 07:48] LABS: Basophils % 0.5 % (0.1-2.0); Eosinophils # 0.4 K/mm3 (0.0-0.4); Eosinophils % 4.2 % (0.1-12.0); Hematocrit 40.1 % (42.0-52.0); Hemoglobin 13.4 g/dL (14.1-18.0); Lymphocytes % 22.3 % (10-50); Mean Corpuscular HGB Conc 33.3 g/dL (31.8-35.4); Mean Corpuscular Hemoglobin 31.3 pg (27.0-31.2); Mean Corpuscular Volume 94.1 fl (80-94); Mean Platelet Volume 8.3 fl (7.4-10.4); Monocytes # 0.7 K/mm3 (0.1-1.0); Monocytes % 8.2 % (1.7-9.3); Neutrophils # 5.8 K/mm3 (1.8-7.8); Neutrophils % 64.8 % (37.0-80.0); Platelet Count 267 K/mm3 (142-424); Red Blood Count 4.26 M/mm3 (4.60-6.20); Red Cell Distribution Width 13.9 % (11.5-17.5); White Blood Count 8.9 K/mm3 (4.8-10.8)
[2023-03-31 07:52] VITALS: O2SAT 96
[2023-03-31 07:53] LABS: Vancomycin,Trough 23.2 ug/mL (5.0-10.0)
[2023-03-31] MEDS: PHA TO NURSING INSTRUCTION 1 EACH NOTAPPLIC (07:53)
[2023-03-31 08:00] VITALS: BP 137/78; PULSE 70; RESP 16; TEMP 36.7; O2SAT 93
--- NOTE | 2023-03-31 08:29 | EXP.PHA.CONS ---
Pharmacy Consult Date: 03/31/23 Time: 08:29 Referring provider: DR. PAYAN Reason for Consult:: VANCOMYCIN LEVEL AND DOSE CHANGE Allergies Allergy/AdvReac Type Severity Reaction Status Date / Time penicillin G [PENICILLIN G] Allergy Unknown Verified 02/05/21 13:10 Home Medications Medication Instructions Recorded Confirmed Type furosemide 40 mg tablet 40 mg PO BID Fluid 02/01/21 03/29/23 History piroxicam 10 mg capsule 10 mg PO BID Pain 02/01/21 03/29/23 History primidone 250 mg tablet 500 mg PO BID seizures 02/01/21 03/29/23 History trazodone 100 mg tablet 100 mg PO HS Insomnia 02/01/21 03/29/23 History levetiracetam 1,000 mg tablet 1,000 mg PO BID Seizures 03/29/23 03/29/23 History New Prescriptions to Start Prescriptions: Height: 1.75 m Weight: 146.113 kg Laboratory Results:: Laboratory Results - last 24 hr 03/30/23 05:00: WBC 8.6, RBC 4.27 L, Hgb 13.3 L, Hct 39.6 L, MCV 92.6, MCH 31.2, MCHC 33.7, RDW 13.9, Plt Count 274, MPV 9.6, Neut % (Auto) 72.3, Lymph % (Auto) 18.2, [place] % (Auto) 8.2, Eos % (Auto) 0.9, Baso % (Auto) 0.4, Neut # (Auto) 6.2, Lymph # (Auto) 1.6, [place] # (Auto) 0.7, Eos # (Auto) 0.1, Baso # (Auto) 0.0, Sodium 132 L, Potassium 3.4 L, Chloride 100, Carbon Dioxide 24, Anion Gap 11.4, BUN 15, Creatinine 0.70, Estimated Creat Clear 67, Estimated GFR 112, Est GFR ( Amer) 135, Glucose 106 H, Calcium 8.4, Magnesium 1.9, Total Bilirubin 0.5, AST 47 D, ALT 22, Alkaline Phosphatase 93, Total Protein 7.1, Albumin 3.6, Globulin 3.5 H, Albumin/Globulin Ratio 1.0 L 03/30/23 10:16: VBG pH 7.43 H, VBG pCO2 37.8, VBG pO2 44.1 H, VBG HCO3 24.5, VBG Total CO2 25.7, VBG O2 Saturation 81.7 H, VBG Base Excess 0.2 03/30/23 10:25: Ammonia 22 03/31/23 07:02: WBC 8.9, RBC 4.26 L, Hgb 13.4 L, Hct 40.1 L, MCV 94.1 H, MCH 31.3 H, MCHC 33.3, RDW 13.9, Plt Count 267, MPV 8.3, Neut % (Auto) 64.8, Lymph % (Auto) 22.3, [place] % (Auto) 8.2, Eos % (Auto) 4.2, Baso % (Auto) 0.5, Neut # (Auto) 5.8, Lymph # (Auto) 2.0, [place] # (Auto) 0.7, Eos # (Auto) 0.4, Baso # (Auto) 0.0, Sodium 134 L, Potassium 3.5, Chloride 101, Carbon Dioxide 27, Anion Gap 9.5, BUN 16, Creatinine 0.70, Estimated Creat Clear 67, Estimated GFR 112, Est GFR ( Amer) 135, Glucose 99, Calcium 8.2 L, Magnesium 2.1 D, Total Bilirubin 0.6, AST 27 D, ALT 22, Alkaline Phosphatase 89, Total Protein 6.8, Albumin 3.4 L, Globulin 3.4 H, Albumin/Globulin Ratio 1.0 L, Vancomycin Trough 23.2 H Assessment and Plan Assessment and plan all Dx Assessment and Plan for all problems:: Pharmacokinetic dosing service Weight: 145 Kilograms Vancomycin single level analysis: Current dose being given: 1750 mg Current dosing interval: 8 hrs Current infusion time (hrs): 2 HR Single level Trough Data: Trough level obtained: 23.2 mcg/ml Timing of trough - # of hrs before next dose: 2 Hrs Desired peak: 35 mcg/ml Desired trough: 15 mcg/ml Estimated PK Parameters: New rate constant (cinthia): 0.093 hr-1 Half-life: 7.45 Hours Vd from levels: 101.50 Liters (0.7 L/kg) CLvanco=?? 9.440 L/hr Estimated New Dose and Interval Recommended dose: 2506.4 mg Recommended interval: 11.1 Hrs Recommendations: Give Vancomycin 2500 mg q 12 hrs. Infuse over 2 hrs Expected Cpeak: 33.4 mcg/mL Expected Ctrough: 13.2 mcg/mL AUC 0-24 /MELISSA Data: MELISSA 0.5 mcg/mL:?? AUC/MELISSA:? 1059.3 MELISSA 1.0 mcg/mL:?? AUC/MELISSA:? 529.7
[2023-03-31] MEDS: ENOXAPARIN 40MG/0.4ML SYRINGE 40 MG SQ ×2 (08:54→20:07)
[2023-03-31] MEDS: PANTOPRAZOLE 40MG TABLET 40 MG PO (08:55)
[2023-03-31] MEDS: levETIRAcetam 500 MG TABLET 1000 MG PO (08:56)
[2023-03-31] MEDS: BUMETANIDE 1MG/4ML VIAL 2 MG IV ×2 (09:00→16:26)
[2023-03-31] MEDS: PRIMIDONE 250MG TABLET 500 MG PO ×2 (09:12→20:07)
[2023-03-31] MEDS: levETIRAcetam 500 MG in 0.9 % SODIUM CHLORIDE 100 ML 210 MG IV (10:36)
--- NOTE | 2023-03-31 12:04 | PC.NURSE ---
patient transferred to the chair without complications. chair alarm is on and functioning. purewick in place.
--- NOTE | 2023-03-31 13:52 | EXP.ACUTE.PN ---
Subjective *Date: 03/31/23 *Time: 17:49 Interval history: Having intermittent confusion. Needs prompting to remember his name. Recalls his birthday without difficulty. He easily distractible. Change in personality. at bedside, discussion about episodes occurring more frequently over the past 4 to 5 months. Diuresing well. Tolerating p.o. intake. Generally confused but not unstable on his feet. Afebrile and on room air. Medical Exam Vital signs and Labs for Last 24 Hours: Vital Signs Temp Pulse Resp BP Pulse Ox O2 Del Method 03/31/23 13:00 Room Air 03/31/23 11:00 Room Air 03/31/23 09:00 Room Air 03/31/23 08:00 98.0 F 70 16 137/78 93 L Room Air 03/31/23 07:52 96 Room Air 03/31/23 06:58 Room Air 03/31/23 04:00 98.7 F 66 20 135/81 96 Room Air 03/31/23 05:00 Room Air 03/31/23 02:45 Room Air 03/30/23 20:00 Room Air 03/31/23 00:44 Room Air 03/30/23 23:00 Room Air 03/30/23 21:00 Room Air 03/30/23 20:00 98.5 F 72 20 151/73 H 95 Room Air 03/30/23 18:34 Room Air 03/30/23 16:52 Room Air 03/30/23 16:00 98.3 F 78 20 144/67 H 94 L Room Air 03/30/23 14:36 Room Air Intake and Output 03/30/23 03/31/23 03/31/23 23:59 07:59 15:59 Intake Total 800 / 2500 400 / 850 450 / 850 Output Total 1450 / 2200 500 / 800 300 / 800 Balance -650 / 300 -100 / 50 150 / 50 Intake: Intake, Oral Amount 800 / 2100 450 / 450 Intake, Total IV Amount 400 / 400 Clindamycin Phosphate/D5w 600 50 / 50 mg In 50 ml @ 100 mls/hr IV Q8H [facility] Rx#:[id number] Vancomycin/Water For Inj (Peg) 350 / 350 1.75 gm In 350 ml @ 175 mls/hr IV Q8H [facility] Rx#:[id number] Output: Output, Urine Amount 1450 / 2200 500 / 800 300 / 800 Other: Number of Unmeasured Voids 1 0 0 Weight 146.113 kg 146.113 kg Patient Weight 03/31/23 23:59 Weight 146.113 kg Laboratory Results - last 24 hr 03/30/23 10:16: VBG pH 7.43 H, VBG pCO2 37.8, VBG pO2 44.1 H, VBG HCO3 24.5, VBG Total CO2 25.7, VBG O2 Saturation 81.7 H, VBG Base Excess 0.2 03/31/23 07:02: WBC 8.9, RBC 4.26 L, Hgb 13.4 L, Hct 40.1 L, MCV 94.1 H, MCH 31.3 H, MCHC 33.3, RDW 13.9, Plt Count 267, MPV 8.3, Neut % (Auto) 64.8, Lymph % (Auto) 22.3, [place] % (Auto) 8.2, Eos % (Auto) 4.2, Baso % (Auto) 0.5, Neut # (Auto) 5.8, Lymph # (Auto) 2.0, [place] # (Auto) 0.7, Eos # (Auto) 0.4, Baso # (Auto) 0.0, Sodium 134 L, Potassium 3.5, Chloride 101, Carbon Dioxide 27, Anion Gap 9.5, BUN 16, Creatinine 0.70, Estimated Creat Clear 67, Estimated GFR 112, Est GFR ( Amer) 135, Glucose 99, Calcium 8.2 L, Magnesium 2.1 D, Total Bilirubin 0.6, AST 27 D, ALT 22, Alkaline Phosphatase 89, Total Protein 6.8, Albumin 3.4 L, Globulin 3.4 H, Albumin/Globulin Ratio 1.0 L, Vancomycin Trough 23.2 H I & O for Labs for Last 24 Hours: Intake & Output 03/28/23 03/29/23 03/30/23 03/31/23 23:59 23:59 23:59 23:59 Intake Total 1720 / 1720 2500 / 2500 850 / 850 Output Total 2250 / 2250 2200 / 2200 800 / 800 Balance -530 / -530 300 / 300 50 / 50 Weight 143.789 kg 145 kg 141.6 kg 146.113 kg Microbiology Reports for the Last 24 Hours: Microbiology 03/28/23 21:37 Leg,Right Gram Stain - Final Constitutional: Present no acute distress, morbidly obese, chronically ill appearing and cooperative Head: Present atraumatic and normocephalic ENT: Present normal exam Comment:: Prominent port wine stain left forehead Respiratory: Present normal respiratory effort; Absent rhonchi, wheezes or crackles Cardiac: Present Reg Rate and Rhythm GI: Present soft and normal bowel sounds; Absent distention or tenderness Extremities: Present normal inspection, full ROM and edema (2+ edema to his knees, mild erythema) Skin: Present intact and erythema (Improving) Comment:: No tenderness on exam today Neuro: Present Grossly Intact, alert, awake and moves all extremities Comment:: Oriented to self only Assessment and Plan *Assessment and plan (1) Cellulitis: Status: Acute Qualifiers: Laterality: unspecified laterality Site of cellulitis: extremity Site of cellulitis of extremity: lower extremity Qualified Code(s): L03.119 - Cellulitis of unspecified part of limb Category: Medical Code(s): L03.90 - Cellulitis, unspecified (2) Chronic acquired lymphedema: Status: Acute Category: Medical Code(s): I89.0 - Lymphedema, not elsewhere classified (3) Wound, open, leg: Status: Acute Qualifiers: Encounter type: initial encounter Laterality: bilateral Qualified Code(s): S81.801A - Unspecified open wound, right lower leg, initial encounter; S81.802A - Unspecified open wound, left lower leg, initial encounter Category: Medical Code(s): S81.809A - Unspecified open wound, unspecified lower leg, initial encounter (4) Obese: Status: Acute Qualifiers: Body mass index: BMI 45.0-49.9 Obesity classification: adult class 3 (BMI >= 40) Obesity type: due to excess calories Serious obesity comorbidity presence: with serious comorbidity Qualified Code(s): E66.01 - Morbid (severe) obesity due to excess calories; Z68.42 - Body mass index [BMI] 45.0-49.9, adult Category: Medical Code(s): E66.9 - Obesity, unspecified (5) Epilepsy: Status: Acute Category: Medical Code(s): G40.909 - Epilepsy, unspecified, not intractable, without status epilepticus (6) Sturge-Fang syndrome: Status: Chronic Category: Medical Code(s): Q85.89 - Other phakomatoses, not elsewhere classified (7) Confusion: Status: Acute Category: Medical Code(s): R41.0 - Disorientation, unspecified Plan 67-year-old male with a history of obesity and bilateral lower extremity chronic lymphedema with recurrent cellulitis who does not follow regularly with a physician presented to the ED c/o bilateral leg swelling, open and weeping legs. on arrival patient presented with visible swollen legs. open sore. Worsened on the right side. Concerning for chronic venous stasis and recurrent cellulitis. Previous Hx of Staph infections. labs obtained. reviewed. WBC are normal. CRP elevated. Discussion made with ED provider. Due to high risk of rapidly infection spreading and complication and after failure as outpatient treatment. We were agreed for admission. Labs have normalized. Continues to have intermittent confusion and what appear to be absence seizure's. Stable at this time for discharge home without more formal plan. Discussion with today. Consulting neuro at for further recommendations. Continues to require inpatient management. Continuing diuresis. Problems addressed as follows: -Cellulitis of the bilateral lower extremity: - Lymphedema Concern for cellulitis superimposed on lymphedema. Discontinue vancomycin. Continue clindamycin IV, pending response over the next 24 hours will transition to oral antibiotics. Wound care consult placed, appreciate their recommendations. White count stable at 8.9. Hemoglobin 13. No fever overnight. Repeat CBC, CMP, magnesium ordered for the morning. Sodium normalizing at 134, potassium 3.5. Kidney function normal at 16 and 0.7 Appears fluid neutral for admission. 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 Appears to be having absence seizure's on exam. Intermittently unresponsive and looking up to the right and then will respond to voice with simple answers but appears confused. Continue primidone 500 mg twice daily. Will increase his levetiracetam to 1500 mg twice daily Discussed case with , she states he has been having progression of symptoms and change in personality over the past 4 to 5 months. This appears to be a subacute change. Has been seeing neurology at . Will reach out to them today to discuss possibility for transfer versus outpatient plan for close follow-up and further management as appears comfortable with patient's changes and has been dealing with an at home for the past 4 months at least with these episodes. -Morbidly obesity: Will complicate all aspects of care. Lovenox for DVT prophylaxis On Protonix Full code
[2023-03-31 16:00] VITALS: BP 137/73; PULSE 66; RESP 22; TEMP 36.9; O2SAT 95
[2023-03-31] MEDS: VANCOMYCIN HCL 2,500 MG in 0.9 % SODIUM CHLORIDE 250 ML 125 MG IV (17:11)
--- NOTE | 2023-03-31 17:58 | PC.NURSE ---
patient is sitting up in bed eating dinner with the assistance of his . Pt had 1 bowel movement and significant UOP during this shift. bed alarm is on and functioning, call light within reach.
[2023-03-31 20:00] VITALS: BP 136/73; PULSE 76; RESP 20; TEMP 36.6; O2SAT 94
[2023-03-31] MEDS: DOCUSATE SODIUM 100 MG CAPSULE PO (20:06)
[2023-03-31] MEDS: levETIRAcetam 500 MG TABLET 1500 MG PO (20:07)
[2023-04-01] MEDS: CLINDAMYCIN PHOSPHATE/D5W 600 MG/50 ML PIGGYBACK 100 MG IV ×2 (00:32→08:58)
[2023-04-01 04:00] VITALS: BP 146/79; PULSE 79; RESP 20; TEMP 36.7; O2SAT 93; BMI 47.2
[2023-04-01 06:53] LABS: Basophils % 0.5 % (0.1-2.0); Eosinophils # 0.4 K/mm3 (0.0-0.4); Eosinophils % 4.7 % (0.1-12.0); Hematocrit 38.2 % (42.0-52.0); Hemoglobin 12.7 g/dL (14.1-18.0); Lymphocytes # 1.8 K/mm3 (0.7-4.5); Lymphocytes % 21.1 % (10-50); Mean Corpuscular HGB Conc 33.3 g/dL (31.8-35.4); Mean Corpuscular Hemoglobin 30.9 pg (27.0-31.2); Mean Corpuscular Volume 92.7 fl (80-94); Mean Platelet Volume 8.4 fl (7.4-10.4); Monocytes # 0.8 K/mm3 (0.1-1.0); Monocytes % 8.9 % (1.7-9.3); Neutrophils # 5.6 K/mm3 (1.8-7.8); Platelet Count 241 K/mm3 (142-424); Red Blood Count 4.12 M/mm3 (4.60-6.20); Red Cell Distribution Width 13.8 % (11.5-17.5); White Blood Count 8.6 K/mm3 (4.8-10.8)
[2023-04-01 06:58] LABS: Magnesium 2.2 mg/dl (1.6-2.3)
[2023-04-01 07:01] LABS: Alanine Aminotransferase 25 U/L (12-78); Albumin Level 3.5 g/dl (3.5-5.0); Albumin/Globulin Ratio 1.1 (1.1-1.8); Alkaline Phosphatase 83 U/L (38-126); Anion Gap 7.3 mEq/L (5-15); Aspartate Amino Transferase 24 U/L (17-59); Bilirubin,Total 0.3 mg/dl (0.2-1.3); Blood Urea Nitrogen 17 mg/dl (9-20); Calcium 8.4 mg/dl (8.4-10.2); Carbon Dioxide 30 mmol/L (22.0-30.0); Chloride 100 mmol/L (98-107); Creatinine Clearance Estimated 67 mL/min (50-200); Estimated Glomerular Filt Rate 96 ml/min (>60); GFR (African American) 116 ML/MIN (>60); Globulin 3.3 g/dL (1.3-3.2); Glucose 99 mg/dl (74-100); Potassium 3.3 mmoL/L (3.5-5.1); Sodium 134 mmol/L (136-145); Total Protein,Serum 6.8 g/dl (6.3-8.2)
[2023-04-01 07:40] VITALS: BP 147/74; PULSE 75; RESP 18; TEMP 36.6; O2SAT 94
--- NOTE | 2023-04-01 07:40 | P.DS_ITS ---
General Admission date:: 03/28/23 Discharge date: 04/01/23 HPI HPI HPI: This is a 67-year-old male with a history of obesity and bilateral lower extremity chronic lymphedema with recurrent cellulitis who does not follow regularly with a physician presented to the ED c/o bilateral leg swelling, open and weeping legs. Presented with foul-smelling drainage. Patient was seen at ED last couple day for same reason. was sent home with oral abx. Per ER provider his notes that it started just before the last time that he was here, but it has gotten progressively worse. On medical record review, it appears that he was here on 11/12/2022. He is also been more tired than usual and complains of a headache. He has not seen a provider for this, and she has been doing local wound care at home with topical Neosporin but it is not helping. Admitted for further treatment and management. Hospital Course Hospital Course Hospital Course: 67-year-old male with a history of obesity and bilateral lower extremity chronic lymphedema with recurrent cellulitis who does not follow regularly with a physician presented to the ED c/o bilateral leg swelling, open and weeping legs. on arrival patient presented with visible swollen legs. open sore. Worsened on the right side. Concerning for chronic venous stasis and recurrent cellulitis. Previous Hx of Staph infections. labs obtained. reviewed. WBC are normal. CRP elevated. Discussion made with ED provider. Due to high risk of rapidly infection spreading and complication and after failure as outpatient treatment. We were agreed for admission. Labs normalized during admission. Patient tolerating good p.o. intake. Patient having what appears to be absence seizure's during admission with intermittent confusion. Adjustments were made to his antiseizure medication regimen. Discussion had with neurology at for close follow-up. Discussed case with patient's , states the symptoms have been progressing over the past 4 to 5 months. Feels comfortable taking him home. Clinically stable to discharge home in the care of . Problems addressed as follows: -Cellulitis of the bilateral lower extremity: - Lymphedema Concern for cellulitis superimposed on lymphedema. Initially on vancomycin and clindamycin. Wound care consulted to assist with Unna boots and recommendations for legs. Patient overall doing well. Responding to antibiotics. Transition to clindamycin p.o. to complete 7-day course of antibiotics. White cell count normal at 8.6 for over 48 hours prior to discharge. No fevers. Responding well to diuresis also. Continue Bumex 2 mg twice daily for lymphedema. Kidney function normal with creatinine of 0.8. Recommend close follow-up with PCP. 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 Appears to be having absence seizure's on exam. Intermittently unresponsive and looking up to the right and then will respond to voice with simple answers but appears confused. Continue primidone 500 mg twice daily. Increased his levetiracetam to 1500 mg twice daily. Discussed case with , she states he has been having progression of symptoms and change in personality over the past 4 to 5 months. This appears to be a subacute change. Has been seeing neurology at . Contacted on 03/31/2023 via [employer] [facility]. Spoke with Dr. Holland, ed special education teacher for Neurology. Agreed with increasing Keppra to 1500 mg twice daily. Recommended close outpatient follow-up. They will work on ordering and scheduling MRI of brain and routine EEG. Discussed home health with patient and , adamantly refused as they have a dog that bites. Spouse feels that she can provide all services necessary. Strong concern for patient needing services, however we will honor their preference and agree to disagree on his needs. High risk for readmission. Spent 30 minutes in discharge counseling, documentation, chart review, and direct care with patient. Exam Data for Last 24 hours Vital signs and Labs for Last 24 Hours: Temp Pulse Resp BP Pulse Ox O2 Del Method 98.7 F 66 20 135/81 96 Room Air 03/31/23 04:00 03/31/23 04:00 03/31/23 04:00 03/31/23 04:00 03/31/23 04:00 03/31/23 06:58 Laboratory Results - last 24 hr 03/30/23 05:00: WBC 8.6, RBC 4.27 L, Hgb 13.3 L, Hct 39.6 L, MCV 92.6, MCH 31.2, MCHC 33.7, RDW 13.9, Plt Count 274, MPV 9.6, Neut % (Auto) 72.3, Lymph % (Auto) 18.2, [place] % (Auto) 8.2, Eos % (Auto) 0.9, Baso % (Auto) 0.4, Neut # (Auto) 6.2, Lymph # (Auto) 1.6, [place] # (Auto) 0.7, Eos # (Auto) 0.1, Baso # (Auto) 0.0, Sodium 132 L, Potassium 3.4 L, Chloride 100, Carbon Dioxide 24, Anion Gap 11.4, BUN 15, Creatinine 0.70, Estimated Creat Clear 67, Estimated GFR 112, Est GFR ( Amer) 135, Glucose 106 H, Calcium 8.4, Magnesium 1.9, Total Bilirubin 0.5, AST 47 D, ALT 22, Alkaline Phosphatase 93, Total Protein 7.1, Albumin 3.6, Globulin 3.5 H, Albumin/Globulin Ratio 1.0 L 03/30/23 10:16: VBG pH 7.43 H, VBG pCO2 37.8, VBG pO2 44.1 H, VBG HCO3 24.5, VBG Total CO2 25.7, VBG O2 Saturation 81.7 H, VBG Base Excess 0.2 03/30/23 10:25: Ammonia 22 I & O for Last 24 hours: Intake & Output 03/28/23 03/29/23 03/30/23 03/31/23 23:59 23:59 23:59 23:59 Intake Total 1720 / 1720 2500 / 2500 400 / 400 Output Total 2250 / 2250 2200 / 2200 500 / 500 Balance -530 / -530 300 / 300 -100 / -100 Weight 143.789 kg 145 kg 141.6 kg 146.113 kg Microbiology Reports for the Last 24 Hours: Microbiology 03/28/23 21:37 Leg,Right Gram Stain - Final Constitutional Constitutional: no acute distress, morbidly obese, chronically ill appearing and cooperative *Routine HEENT Exam Head: Present normocephalic Eye: Present EOMI and PERRL ENT: Present mucous membranes moist Comments: Nevus flammeus left forehead *Routine Neck Exam Neck: Present supple; Absent lymphadenopathy *Routine Respiratory Exam Respiratory: Present CTA bilaterally and distant breath sounds; Absent rhonchi, wheezes or crackles *Routine Cardiovascular Exam Cardiovascular: Present RRR *Routine Abdominal Exam Abdominal: Present soft and normoactive bowel sounds; Absent tenderness *Routine Rectal Exam Patient deferred: visual exam *Routine Exam Patient deferred: penile exam *Routine Extremities Exam Extremities: Present edema (Chronic); Absent cyanosis or clubbing *Routine Skin Exam Skin: Present warm; Absent rash Comments: Improved erythema of lower extremity *Routine Neurological Exam Neurological: Present alert, altered mental status and moving all extremities Comments: Knows his name and birthday, does not know how long has been at the hospital. Intermittent waxing and waning of mentation due to his underlying Sturge-Fang syndrome. At baseline per . Results Data Completed and Pending Labs on day of discharge: Labs from last 24 hours 03/30/23 03/30/23 03/30/23 10:25 10:16 05:00 WBC 8.6 RBC 4.27 L Hgb 13.3 L Hct 39.6 L MCV 92.6 MCH 31.2 MCHC 33.7 RDW 13.9 Plt Count 274 MPV 9.6 Neut % (Auto) 72.3 Lymph % (Auto) 18.2 [place] % (Auto) 8.2 Eos % (Auto) 0.9 Baso % (Auto) 0.4 Neut # (Auto) 6.2 Lymph # (Auto) 1.6 [place] # (Auto) 0.7 Eos # (Auto) 0.1 Baso # (Auto) 0.0 VBG pH 7.43 H VBG pCO2 37.8 VBG pO2 44.1 H VBG HCO3 24.5 VBG Total CO2 25.7 VBG O2 Saturation 81.7 H VBG Base Excess 0.2 Sodium 132 L Potassium 3.4 L Chloride 100 Carbon Dioxide 24 Anion Gap 11.4 BUN 15 Creatinine 0.70 Estimated Creat Clear 67 Estimated GFR 112 Est GFR ( Amer) 135 Glucose 106 H Calcium 8.4 Magnesium 1.9 Total Bilirubin 0.5 AST 47 D ALT 22 Alkaline Phosphatase 93 Ammonia 22 Total Protein 7.1 Albumin 3.6 Globulin 3.5 H Albumin/Globulin Ratio 1.0 L DS: Diagnosis Discharge Diagnosis (1) Cellulitis: Status: Acute Code(s): L03.90 - Cellulitis, unspecified Qualifiers: Laterality: unspecified laterality Site of cellulitis: extremity Site of cellulitis of extremity: lower extremity Qualified Code(s): L03.119 - Cellulitis of unspecified part of limb (2) Chronic acquired lymphedema: Status: Acute Code(s): I89.0 - Lymphedema, not elsewhere classified (3) Wound, open, leg: Status: Acute Code(s): S81.809A - Unspecified open wound, unspecified lower leg, initial encounter Qualifiers: Encounter type: initial encounter Laterality: bilateral Qualified Code(s): S81.801A - Unspecified open wound, right lower leg, initial encounter; S81.802A - Unspecified open wound, left lower leg, initial encounter (4) Obese: Status: Acute Code(s): E66.9 - Obesity, unspecified Qualifiers: Body mass index: BMI 45.0-49.9 Obesity classification: adult class 3 (BMI >= 40) Obesity type: due to excess calories Serious obesity comorbidity presence: with serious comorbidity Qualified Code(s): E66.01 - Morbid (severe) obesity due to excess calories; Z68.42 - Body mass index [BMI] 45.0-49.9, adult (5) Epilepsy: Status: Acute Code(s): G40.909 - Epilepsy, unspecified, not intractable, without status epilepticus (6) Sturge-Fang syndrome: Status: Chronic Code(s): Q85.89 - Other phakomatoses, not elsewhere classified (7) Confusion: Status: Acute Code(s): R41.0 - Disorientation, unspecified Meds Home Medications and Allergies Home Medications Medication Instructions Recorded Confirmed Type piroxicam 10 mg capsule 10 mg PO BID Pain 02/01/21 03/29/23 History primidone 250 mg tablet 500 mg PO BID seizures 02/01/21 03/29/23 History trazodone 100 mg tablet 100 mg PO HS Insomnia 02/01/21 03/29/23 History bumetanide 2 mg tablet 2 mg PO BID 30 days #60 tabs 04/01/23 Rx clindamycin HCl 300 mg capsule 300 mg PO TID 4 days #10 caps 04/01/23 Rx levetiracetam 1,000 mg tablet 1,500 mg PO BID Seizures 30 days 04/01/23 Rx #90 tabs New Prescriptions to Start Prescriptions: anniemetanide Saurabh Burk clindamycin HCl Saurabh Burk levetiracetam Saurabh Burk Allergies Allergy/AdvReac Type Severity Reaction Status Date / Time penicillin G [PENICILLIN G] Allergy Unknown Verified 02/05/21 13:10 Discharge Plan Disposition Patient Disposition: Home Health Service Condition: Good Discharge Order Discharge Orders: Discharge Order (Routine); Ordered 04/01/23 Ordered By: Saurabh Burk Follow up Plan Follow up with: Seferino Valderrama MD [Primary Care Provider] - 04/08/23 9:00 am (bill to be paid before office visit) Prescriptions/Medication Reconciliation: New bumetanide 2 mg tablet 2 mg PO BID 30 Days Qty: 60 0RF clindamycin HCl 300 mg capsule 300 mg PO TID 4 Days Qty: 10 0RF Continued primidone 250 MG tablet 500 mg PO BID trazodone 100 MG tablet 100 mg PO HS piroxicam 10 MG capsule 10 mg PO BID Changed levetiracetam 1,000 mg tablet 1,500 mg PO BID 30 Days Qty: 90 0RF Patient Comments: TAKE ONE TABLET BY MOUTH TWICE DAILY Discontinued furosemide 40 MG tablet 40 mg PO BID Problem Reconciliation Problems Reviewed?: Yes Patient Discharge Instructions ACTIVITY: Continue current activity DIET: continue same diet Patient Instructions: DI for Cellulitis -- Adult, Heart-Healthy Diet, DI for Lymphedema Providers Primary Care Provider: Seferino Valderrama Admit Provider: Saurabh Burk Attending Provider: Saurabh Burk
[2023-04-01] MEDS: levETIRAcetam 500 MG TABLET 1500 MG PO (08:58)
[2023-04-01] MEDS: ENOXAPARIN 40MG/0.4ML SYRINGE 40 MG SQ (08:58)
[2023-04-01] MEDS: PANTOPRAZOLE 40MG TABLET 40 MG PO (08:59)
[2023-04-01] MEDS: BUMETANIDE 1MG/4ML VIAL 2 MG IV (08:59)
[2023-04-01] MEDS: PRIMIDONE 250MG TABLET 500 MG PO (08:59)
--- NOTE | 2023-04-01 09:39 | SW/DCPLANNER ---
I spoke w/ patient regarding plans once medically stable for discharge. Patient was unable to answer my questions appropriately but was agreeable for me to contact his . PT/OT/wound care recommended home health services at time of discharge. Patient's (Karol) is not agreeable to home health services at this time due to having a dog that bites . Karol stated that she will be able to assist patient w/ all needs at home. I will continue to follow up w/ patient and family until medically stable for discharge. Patient may discharge home later this afternoon.
--- NOTE | 2023-04-02 11:46 | CARE MANAGER ---
Contacted patient's related to hospital discharge. She states patient is doing much better. He is more alert and seems like himself. They are aware of follow up appointment and picked up his medication. Denies questions or concerns at this time. ELAYNE Suggs
== END 2023-04-01 13:11 | disposition home or self-care (01) ==
LOC: ER 22:52 → ICU 23:07 → 2ND 03-29 16:32
PROVIDERS: Nurse Practitioner Family; Admitting Provider Internal Medicine Adolescent Medicine; Emergency Provider Emergency Medicine; PCP Family Medicine; Visit Provider Internal Medicine Adolescent Medicine
DX: L03.116 Cellulitis of left lower limb (principal); I89.0 Lymphedema, not elsewhere classified; S81.801A Unspecified open wound, right lower leg, initial encounter; S81.802A Unspecified open wound, left lower leg, initial encounter; E66.01 Morbid (severe) obesity due to excess calories; Z68.42 Body mass index [BMI] 45.0-49.9, adult; G40.909 Epilepsy, unspecified, not intractable, without status epilepticus; R41.0 Disorientation, unspecified; L03.115 Cellulitis of right lower limb; Z79.899 Other long term (current) drug therapy; M79.661 Pain in right lower leg; M79.662 Pain in left lower leg
CPT/HCPCS: 36415; 70450; 71045; 80053; 80202; 82140; 82550; 82803; 83605; 83735; 85025; 85378; 85610; 85651; 85730; 86140; 87040; 87070; 87205; 93005; 97163; 97165; 99285; G0378; J0696; J1953; J3370